=== PATIENT | female | born 1960 | race American Indian/Alaskan Native ===

== ENCOUNTER → 2018-01-26 | Outpatient (CLI) | payer OTHER ==
[~2018-01-26] MED LIST: (None)20 M1 PO; CEPH500 PO; CIPR500 PO; Cleocin HCl150 MG PO; Doxycycline Hy100 MG PO; Esgic Tablet1 EACH PO; FERR325 PO; FURO20 PO; FURO40 PO; HYDR1TAB94 PO; LEVSOD88 PO; LISI5 PO; NADO40 PO; Norco 10-325 T1 EACH PO; ONDA4; ONDA4ODT MM; PANT40 PO; PROM25 PO; PROP10 PO; PSEU120ER PO; RXHYD5325 PO; RXONDA4ODT MM; Roxicodone5 MG PO; SPIR50 PO; SULTRIDS; THYROID; URSO300; URSO300 PO; Veetids 500500 MG PO; Zofran Odt4 MG SL; Zofran Odt8 MG SL; [UNRECOGNIZED DRUG - OTHER]
== END ==
LOC: LAB SHORT 15:30 → LAB 15:30
DX: R31.9 Hematuria, unspecified (principal)
CPT/HCPCS: 87086

== ENCOUNTER 2018-10-13 08:29 | Day surgery (SDC) | payer OTHER ==
[~2018-10-13] VITALS: Ht 175.3 cm; Wt 119.8 kg
[2018-10-13] MEDS ORDERED: ALPR.5 PO (09:55)
[2018-10-13] MEDS ORDERED: ALBU90OI61 INH (09:56)
--- NOTE | 2018-10-13 11:51 | NUR ---
10/13/18 Luis M Parham PATIENT INTO SDU RESTING IN BED, REPORTS NAUSEA, PER MD ORDERS GAVE IV MEDICATION FOR NAUSEA, WILL CONTINUE TO MONITOR. PATIENT VSS. SANDRA CALLED AND ARRIVED @1137 FOR CXR.
== END 2018-10-13 13:15 | disposition home or self-care (01) ==
LOC: ORSCSDS 08:29
DX: C81.0 Nodular lymphocyte predominant Hodgkin lymphoma (principal); C81.01 Nodular lymphocyte predominant Hodgkin lymphoma, lymph nodes of head, face, and neck; I10 Essential (primary) hypertension; E03.9 Hypothyroidism, unspecified; E66.01 Morbid (severe) obesity due to excess calories; Z68.39 Body mass index [BMI] 39.0-39.9, adult; Z79.899 Other long term (current) drug therapy
CPT/HCPCS: 77001; C1788; J0690; J1100; J1642; J2250; J2405; J3010; J7120

== ENCOUNTER 2019-01-17 00:34 | Day surgery (SDC) | payer OTHER ==
[2019-01-16 08:10] LABS: BASOPHILS ABSOLUTE AUTO 0.01 K/mm3 (0.00-0.23); BASOPHILS PERCENT AUTO 0 % (0-2); EOSINOPHILS PERCENT AUTO 0 % (0-6); Hematocrit 26.8 % (33.0-51.0); IMMATURE GRAN ABSOLUTE AUTO 0.23 K/mm3 (0.00-0.10); IMMATURE GRAN PERCENT AUTO 5 % (0-1); LYMPHOCYTES ABSOLUTE AUTO 0.14 K/mm3 (0.84-5.20); LYMPHOCYTES PERCENT AUTO 3 % (21-46); MONOCYTES ABSOLUTE AUTO 0.69 K/mm3 (0.16-1.47); MONOCYTES PERCENT AUTO 14 % (4-13); Mean Corpuscular HGB Conc 33.6 g/dL (31.5-36.5); Mean Corpuscular Volume 98 fL (80-100); Mean Platelet Volume 11.2 fL (9.1-12.4); NEUTROPHILS ABSOLUTE AUTO 3.83 K/mm3 (1.96-9.15); NEUTROPHILS PERCENT AUTO 78 % (41-73); NRBC ABSOLUTE 0.03 K/mm3 (0.00-0.02); NRBC Auto 0.6 /100 WBC (0.0-0.2); Platelet Count 155 K/mm3 (150-400); RDW Coefficient Variation 15.9 % (11.7-14.2); RDW Standard Deviation 56.8 fL (35.1-46.3); Red Blood Cell Count 2.73 M/mm3 (3.80-5.20)
[2019-01-16 08:33] LABS: Alanine Aminotransfer (ALT/SGP 24 U/L (12-78); Albumin, Blood 2.6 g/dL (3.4-5.0); Albumin/Globulin Ratio 0.8 (0.8-1.8); Alk Phos 136 U/L (50-136); Anion Gap 11 mmol/L (6-16); Aspartate Aminotrans (AST/SGOT 42 U/L (12-37); Bilirubin, Total 1.7 mg/dL (0.1-1.0); Blood Urea Nitrogen 11 mg/dL (8-24); Bun/Creatinine Ratio 14.4 (12.0-20.0); CO2, Blood 25 mmol/L (21-32); Calcium, Blood 8.9 mg/dL (8.5-10.1); Chloride, Blood 96 mmol/L (98-108); Creatinine, Blood 0.76 mg/dL (0.40-1.00); Globulin, Blood 3.2 g/dL (2.2-4.0); Glomerular Filtration Rate >60 (60-); Glucose, Blood 106 mg/dL (70-99); Lactate Dehydrogenase (Ld),Bld 427 U/L (100-240); Potassium, Blood 3.3 mmol/L (3.5-5.5); Sodium, Blood 132 mmol/L (136-145); Total Protein, Blood 5.8 g/dL (6.4-8.2)
[~2019-01-17 00:34] MED LIST changes: +ALBU90OI61 INH; +ALPR.5 PO
[2019-01-17] MEDS ORDERED: PROP10 PO (14:27)
[2019-01-17] MEDS ORDERED: PSEU120ER PO (14:27)
[2019-01-17] MEDS ORDERED: Loratadine10 MG PO (14:29)
[2019-01-17] MEDS ORDERED: KRISTALOSE PO (14:29)
[2019-01-17] MEDS ORDERED: PANT40 PO (14:30)
[2019-01-17] MEDS ORDERED: ONDA8 PO (14:30)
[2019-01-17] MEDS ORDERED: PRED20 PO (14:33)
[2019-01-17] MEDS ORDERED: OLAN10 PO (14:33)
[2019-01-17] MEDS ORDERED: DEXA4 PO (14:34)
[2019-01-17] MEDS ORDERED: METO10 PO (14:35)
[2019-01-17] MEDS ORDERED: LIDOCAINE-PRIL1 EACH TOP (14:38)
[2019-01-17] MEDS ORDERED: NYST237S PO (14:39)
[2019-01-17] MEDS ORDERED: SUCR1 PO (14:42)
== END 2019-01-17 15:50 | disposition home or self-care (01) ==
LOC: ATC 00:34 → EDSTATUS 14:00 → ATC 14:00
PROVIDERS: Internal Medicine Hematology & Oncology
DX: C81.0 Nodular lymphocyte predominant Hodgkin lymphoma (principal); C81.01 Nodular lymphocyte predominant Hodgkin lymphoma, lymph nodes of head, face, and neck; E86.0 Dehydration; K21.9 Gastro-esophageal reflux disease without esophagitis; I10 Essential (primary) hypertension; D64.9 Anemia, unspecified; F41.9 Anxiety disorder, unspecified; Z87.442 Personal history of urinary calculi; Z79.899 Other long term (current) drug therapy
CPT/HCPCS: 36415; 36430; 80053; 83615; 85025; 86850; 86900; 86901; 86923; J1642; J7050; P9016

== ENCOUNTER 2019-02-06 18:40 | Inpatient (IN) | payer OTHER ==
[~2019-02-06] VITALS: Ht 167.6 cm; Wt 121.3 kg
[~2019-02-06 18:40] MED LIST changes: +Aldactone100 MG PO; +Constulose10 GM/15 M PO; +DEXA4 PO; +EUTHYROX88 MCG PO; -LEVSOD88 PO; +LIDOCAINE-PRIL1 EACH TOP; +Loratadine10 MG PO; +METO10 PO; +NYST237S PO; +OLAN10 PO; +PRED20 PO; -SPIR50 PO; +SUCR1 PO; -URSO300; +Zofran8 MG PO
[2019-02-06 19:40] LABS: Source, Urine Catheter
[2019-02-06 19:45] LABS: Blood, Urine 2+ (Neg); Glucose Qualitative, Urine Neg (Neg); Ketones, Urine Neg (Neg); Leukocyte Esterase, Urine 1+ (Neg); Nitrite, Urine Neg (Neg); Protein, Urine 1+ (Neg); Specific Gravity, Urine 1.015 (1.003-1.022); Urobilinogen, Urine 1+ (Normal)
[2019-02-06 19:46] LABS: Hematocrit 21.7 % (33.0-51.0); Mean Corpuscular HGB Conc 32.3 g/dL (31.5-36.5); Mean Corpuscular Volume 99 fL (80-100); RDW Coefficient Variation 17.2 % (11.7-14.2); RDW Standard Deviation 63.1 fL (35.1-46.3); Red Blood Cell Count 2.19 M/mm3 (3.80-5.20)
[2019-02-06 19:52] LABS: Platelet Count 9 K/mm3 (150-400)
[2019-02-06 19:53] LABS: White Blood Cell Count 0.03 K/mm3 (4.00-11.30)
[2019-02-06 19:58] LABS: Bilirubin, Urine 1+ (Neg)
[2019-02-06 19:59] LABS: Appearance, Urine Hazy (Clear); Color, Urine Orange (P-Yellow)
[2019-02-06 20:00] LABS: Bacteria Many /hpf; Red Blood Cells, Urine 0-2 /hpf (0-2); Squamous Epithelial Cells Not Seen /hpf (Few); White Blood Cells, Urine 0-2 /hpf (0-5)
[2019-02-06 20:17] LABS: Albumin, Blood 2.3 g/dL (3.4-5.0); Albumin/Globulin Ratio 1.1 (0.8-1.8); Bilirubin, Total 3.9 mg/dL (0.1-1.0); Bun/Creatinine Ratio 18.1 (12.0-20.0); Calcium, Blood 8.9 mg/dL (8.5-10.1); Creatinine, Blood 1.16 mg/dL (0.40-1.00); Globulin, Blood 2.1 g/dL (2.2-4.0); Total Protein, Blood 4.4 g/dL (6.4-8.2)
[2019-02-06 20:20] LABS: International Normalized Ratio 1.57
[2019-02-06 22:10] LABS: RETIC HGB EQUIVALENT 37.1 pg (28.20-36.60); RETICULOCYTE COUNT PERCENT 0.26 % (0.50-2.50)
[2019-02-07 03:14] LABS: Adenovirus Not Detected (NOT DETECT); Bordetella pertussis Not Detected (NOT DETECT); Chlamydophila pneumoniae Not Detected (NOT DETECT); Coronavirus 229E Not Detected (NOT DETECT); Coronavirus HKU1 Not Detected (NOT DETECT); Coronavirus NL63 Not Detected (NOT DETECT); Coronavirus OC43 Not Detected (NOT DETECT); Human Metapneumovirus Not Detected (NOT DETECT); Human Rhinovirus/Enterovirus Not Detected (NOT DETECT); Influenza A Not Detected (NOT DETECT); Influenza A/2009-H1 Not Detected (NOT DETECT); Influenza A/H1 Not Detected (NOT DETECT); Influenza A/H3 Not Detected (NOT DETECT); Influenza B Not Detected (NOT DETECT); Mycoplasma pneumoniae Not Detected (NOT DETECT); Parainfluenza Virus 1 Not Detected (NOT DETECT); Parainfluenza Virus 2 Not Detected (NOT DETECT); Parainfluenza Virus 3 Not Detected (NOT DETECT); Parainfluenza Virus 4 Not Detected (NOT DETECT); Respiratory Syncytial Virus Not Detected (NOT DETECT)
[2019-02-07 05:01] LABS: Hematocrit 20.1 % (33.0-51.0); Hemoglobin 6.7 g/dL (11.5-16.0); Mean Corpuscular HGB 32.4 pg (26.0-34.0); Mean Corpuscular HGB Conc 33.3 g/dL (31.5-36.5); Mean Corpuscular Volume 97 fL (80-100); Mean Platelet Volume 10.9 fL (9.1-12.4); RDW Coefficient Variation 16.6 % (11.7-14.2); Red Blood Cell Count 2.07 M/mm3 (3.80-5.20)
[2019-02-07 05:08] LABS: Platelet Count 19 K/mm3 (150-400); White Blood Cell Count 0.02 K/mm3 (4.00-11.30)
[2019-02-07 05:14] LABS: Bun/Creatinine Ratio 17.3 (12.0-20.0); Calcium, Blood 7.1 mg/dL (8.5-10.1); Creatinine, Blood 1.33 mg/dL (0.40-1.00); Potassium, Blood 4.5 mmol/L (3.5-5.5)
[2019-02-07 05:18] LABS: LYMPHOCYTES PERCENT AUTO 40 % (21-46); NEUTROPHILS PERCENT AUTO 40 % (41-73)
[2019-02-07 05:19] LABS: BASOPHILS PERCENT AUTO 0 % (0-2); EOSINOPHILS PERCENT AUTO 0 % (0-6); IMMATURE GRAN PERCENT AUTO 0 % (0-1); LYMPHOCYTES ABSOLUTE AUTO 0.02 K/mm3 (0.84-5.20); MONOCYTES ABSOLUTE AUTO 0.01 K/mm3 (0.16-1.47); MONOCYTES PERCENT AUTO 20 % (4-13); NEUTROPHILS ABSOLUTE AUTO 0.02 K/mm3 (1.96-9.15)
--- NOTE | 2019-02-07 05:48 | NUR ---
ADMIT/SHIFT NOTE PT ARRIVED TO ICU 2 AT 2215 VIA ER BED. PT IS DROWSEY AND ONLY SPEAKS SOME WORDS UPON ARRIVAL. PT FOLLOWS SOME COMMANDS, BUT IS FIDGETY IN BED. PT WITH FIRST UNIT OF PRBC'S AND NS INFUSING IN IVS TO BILAT LOWER LEGS UPON ARRIVAL. PT NOTED TO BE HYPOTENSIVE AT THIS TIME. DR MUNOZ IN UNIT AND ASSESSED PT. NEW ORDERS RECIEVED. MEDIPORT TO RIGHT UPPER CHEST ACCESSED AT THAT TIME. DAVIS IN PLACE UPON ARRIVAL. LEVOPHED STARTED AND MORE FLUIDS GIVEN. PT HAS REMAINED WITH LEVOPHED AT 5 MCG/MIN TO MAINTAIN MAP >65. SECOND UNIT OF PRBCS AND ONE UNIT OF PLATELETS GIVEN. PT HAS REMAINED ON ROOM AIR THROUGHOUT THE SHIFT. WITH WITH SOME IMPROVEMENT IN MENTATION AND EASIER TO AROUSE THIS MORNING. ABLE TO SPEAK MORE WORDS APPROPRIATELY AND IS LESS FIDGETY. MEDIPORT REMAINS ACCESSED WITH NS AT 200 ML/HR AND LEVOPHED INFUSING. IVS TO BILAT LEGS REMAIN IN PLACE. DAVIS REMAINS IN PLACE WITH MINIMAL URINE OUTPUT NOTED. FAMILY AT BEDSIDE AT THIS TIME. WILL CONTINUE TO MONITOR AND REPORT OFF TO ONCOMING RN.
--- NOTE | 2019-02-07 07:45 | NUR ---
ASSUMED CARE PT. PALE IN COLOR. ORIENTED TO LOCATION AND FAMILY. PT. TACHYPNEIC, BREATHING SHALLOW, AND GRUNTING WITH BREATHING. SPO2 95%, PLACED ON 2LNC AT THIS TIME AND BREATHING TREATMENT PROVIDED PER PT. REQUEST. PT. HR 130S, LEVOPHED GTT AT 5MCG/MIN TO MEDIPORT. PT. ALSO HAS 200ML/HR NS INFUSING. PT. HAS IVS IN BILAT LE. PT. FIDGETING IN BED, DENIES PAIN AT THIS TIME. DAVIS IN PLACE DRAINING ORANGE URINE TO GRAVITY. TEMP 99.2 THIS AM. CALL LIGHT IN REACH.
--- NOTE | 2019-02-07 09:48 | NUR ---
DR. ROWELL IN TO ASSESS PT.
[2019-02-07 10:18] LABS: Base Excess Venous -12.3 mmol/L; Bicarbonate Venous 15.5 mmol/L (24.0-30.0); PO2 Venous 136 mmHg (38-42); pH Blood Venous 7.35 (7.34-7.37)
--- NOTE | 2019-02-07 13:00 | NUR ---
DR. RIVERA AT BEDSIDE TO TALK WITH PT AND FAMILY NO ADDITIONAL ORDERS AT THIS TIME.
[2019-02-07 16:28] LABS: Hematocrit 21.2 % (33.0-51.0); Mean Corpuscular HGB 31.4 pg (26.0-34.0); Mean Corpuscular Volume 95 fL (80-100); RDW Coefficient Variation 17.6 % (11.7-14.2); RDW Standard Deviation 60.9 fL (35.1-46.3); Red Blood Cell Count 2.23 M/mm3 (3.80-5.20)
[2019-02-07 16:49] LABS: BASOPHILS PERCENT AUTO 0 % (0-2); EOSINOPHILS PERCENT AUTO 0 % (0-6); IMMATURE GRAN PERCENT AUTO 0 % (0-1); LYMPHOCYTES ABSOLUTE AUTO 0.01 K/mm3 (0.84-5.20); LYMPHOCYTES PERCENT AUTO 33 % (21-46); MONOCYTES ABSOLUTE AUTO 0.01 K/mm3 (0.16-1.47); MONOCYTES PERCENT AUTO 33 % (4-13); NEUTROPHILS ABSOLUTE AUTO 0.01 K/mm3 (1.96-9.15); NEUTROPHILS PERCENT AUTO 33 % (41-73)
[2019-02-07 16:50] LABS: White Blood Cell Count 0.03 K/mm3 (4.00-11.30)
[2019-02-07 16:51] LABS: Platelet Count 13 K/mm3 (150-400)
--- NOTE | 2019-02-07 17:11 | NUR ---
CALL TO DR. ROWELL REGARDING 1600 LABS NO CHANGES AT THIS TIME, CONTINUE WITH LEVOPHED NEEDED FOR BP
--- NOTE | 2019-02-07 18:02 | NUR ---
SHIFT SUMMARY PT. REMAINS ALERT T/O SHIFT, SOME CONFUSION NOTED AT TIMES. PT. VERY WEAK. PALE IN COLOR. PT. REMAINS ON LEVOPHED GTT T/O SHIFT CURRETNLY AT 6MCG/MIN. PT. MED ONCE FOR PAIN AND ANXIETY THIS SHIFT. PT. AT BEDSIDE T/O DAY. VSS AT THIS TIME. REPORT TO ONCOMING RN.
--- NOTE | 2019-02-07 19:50 | NUR ---
ASSESSMENT/ASSUMED CARE PT SITTING UP IN BED WATCHING TV. SMOCKING MACHINE OPERATOR AT BEDSIDE. PT DENIES PAIN AT THIS TIME. ANSWERING YES/NO QUESTIONS. LUNGS CLEAR BUT DECREASED IN THE BASES ON 2 LITERS O2 VIA NC. RESP EVEN AND NONLABORED. TACHY AT TIMES. DENIES COUGH OR SOB. HEART RATE TACHY 100-110. BP STABLE WITH LEVOPHED AT 6 MCQ/MIN TO KEEP MAP ABOVE 65. EDEMA NOTED TO LOWER EXT. BT+ ABD SOFT AND NONTENDER. DENIES N/V. MEDIPORT TO RIGHT CHEST WALL WITH NS AT 10 ML/HR AND LEVOPHED. SITE CLEAR. IV POWER GLIDE TO LEFT UPPER ARM WITH NS AT 10 ML/HR FOR ANTIBIOTICS, SITE CLEAR. DAVIS CATH PATENT DRAINING DARK ORANGE URINE WITH SEDIMENT. PT REPOSITIONED AND ORAL CARE DONE.
[2019-02-07 22:43] LABS: Vancomycin, Trough 22.3 ug/mL (5.0-10.0)
--- NOTE | 2019-02-07 23:48 | NUR ---
REASSESSMENT PT AWAKE WITH VIDEO EDITING INTERNSHIP SLEEPING IN ROOM. PT REPOSITIONED TO BACK WITH HOB UP. PT REQUESTED "SOMETHING TO HELP ME RELAX" MED WITH ATIVAN 0.5 MG. LEVOPHED DOWN TO 3 MCQ/MIN. SOLU CORTEF GIVEN AND ANTIBIOTIC STARTED. VANCO HELD DUE TO TROUGH OF 22.3 PER PHARMACY.
[2019-02-08 03:56] LABS: Bicarbonate Venous 18.8 mmol/L (24.0-30.0); PCO2 Venous 26.4 mmHg (38-42); PO2 Venous 51.2 mmHg (38-42); pH Blood Venous 7.42 (7.34-7.37)
[2019-02-08 03:57] LABS: Base Excess Venous -7.3 mmol/L
[2019-02-08 04:23] LABS: Hematocrit 19.7 % (33.0-51.0); Hemoglobin 6.7 g/dL (11.5-16.0); Mean Corpuscular HGB 32.4 pg (26.0-34.0); Mean Corpuscular Volume 95 fL (80-100); RDW Coefficient Variation 17.5 % (11.7-14.2); RDW Standard Deviation 61.1 fL (35.1-46.3); Red Blood Cell Count 2.07 M/mm3 (3.80-5.20)
[2019-02-08 04:24] LABS: BASOPHILS ABSOLUTE AUTO 0.01 K/mm3 (0.00-0.23); BASOPHILS PERCENT AUTO 11 % (0-2); EOSINOPHILS PERCENT AUTO 0 % (0-6); IMMATURE GRAN PERCENT AUTO 0 % (0-1); LYMPHOCYTES ABSOLUTE AUTO 0.02 K/mm3 (0.84-5.20); LYMPHOCYTES PERCENT AUTO 22 % (21-46); MONOCYTES ABSOLUTE AUTO 0.01 K/mm3 (0.16-1.47); MONOCYTES PERCENT AUTO 11 % (4-13); NEUTROPHILS ABSOLUTE AUTO 0.05 K/mm3 (1.96-9.15); NEUTROPHILS PERCENT AUTO 56 % (41-73)
[2019-02-08 04:25] LABS: Platelet Count 6 K/mm3 (150-400); Vancomycin, Random 18.1 ug/mL; White Blood Cell Count 0.09 K/mm3 (4.00-11.30)
[2019-02-08 04:35] LABS: Albumin, Blood 2.5 g/dL (3.4-5.0); Albumin/Globulin Ratio 1.1 (0.8-1.8); Bilirubin, Total 6.1 mg/dL (0.1-1.0); Bun/Creatinine Ratio 28.8 (12.0-20.0); Creatinine, Blood 1.04 mg/dL (0.40-1.00); Globulin, Blood 2.2 g/dL (2.2-4.0); Magnesium, Blood 1.3 mg/dL (1.6-2.4); Phosphorus, Blood 3.3 mg/dL (2.5-4.9); Potassium, Blood 4.9 mmol/L (3.5-5.5); Total Protein, Blood 4.7 g/dL (6.4-8.2)
[2019-02-08 04:38] LABS: Troponin I 0.563 ng/mL (0.000-0.040)
--- NOTE | 2019-02-08 04:49 | NUR ---
LABS DR ROWELL NOTIFIED REGARDING CRITICAL LABS. RECEIVED ORDERS FOR 1 GRAM MAG AND ONE UNIT PLT.
--- NOTE | 2019-02-08 05:49 | NUR ---
SHIFT SUMMARY PT RESTED QUIELTY DURING THE NIGHT. PT MED WITH ATIVAN ONCE FOR ANXIETY. DENIES PAIN. LEVOPHED TITRATED FROM 6 MCQ/MIN DOWN TO 1 MCQ/MIN DURING THE NIGHT, TITRATING TO KEEP MAP ABOVE 65. PT TRANSFUSED ONE UNIT PLT DUE TO PLT DOWN TO 6. LABS REPORTED TO DR ROWELL. 1 GM MAG INFUSING. PT TURNED Q2HR. MEDIPORT AND POWER GLIDE INFUSING WITHOUT DIFFICULTY. CHEMICAL LABORATORY TECHNICIAN AT BEDSIDE. NO ACUTE CHANGE REPORT TO ON COMING NURSE
--- NOTE | 2019-02-08 07:27 | NUR ---
ASSUMED CARE THIS AM PT. AWAKENS EASILY TO VERBAL STIMULI. PT. REMAINS ON LEOVPHED GTT AT THIS TIME AT 1MCG/MIN. PT. DENIES ANY PAIN THIS MORNING INCLUDING CHEST PAIN OR PRESSURE. PT. AFEBRILE THIS AM. PT. ABLE TO ASSIST WITH REPOSITIONING IN BED, HOWEVER VERY WEAK. REMAINS ON 2LNC. PT. RR EVEN AND UNLABORED THIS AM. SHALLOW BREATHES. PT. HAS CALL LIGHT IN REACH. DAVIS IN PLACE DRAINING TO GRAVITY. PT. SLEEPING AT BEDSIDE. VSS THIS AM.
--- NOTE | 2019-02-08 11:17 | NUR ---
UPDATE PT. RESTING COMFORTABLY IN BED, NO ACUTE DISTRESS AT THIS TIME. NO C/O PAIN.PT. FAMILY REMINDED FREQUENTLY TO FOLLOW NEUTROPENIC PRECAUTIONS; PT SIGNIFICANT OTHER REFUSES, STATING HE CANNOT BREATHE WITH A MASK ON. EDUCATED ON REASONS FOR PRECAUTIONS AND SAFETY OF PATIENT. MULTIPLE FAMILY MEMBERS UPDATED TODAY, ENCOURAGED THEY APPOINT AN INDIVIDUAL TO RECIEVE UPDATES AND KEEP FAMILY UPDATED SO RN CAN FOCUS ON PROVIDING CARE TO PATIENT.
--- NOTE | 2019-02-08 11:53 | NUR ---
LUNCH PT. ABLE TO TOLERATE VERY SMALL AMOUNT OF LUNCH. TRAY CHANGED TO PUREE R/T PT NOT HAVING TEETH. PT. ENCOURAGED TO HOLD HER WATER CUP AND FEED SELF. ABLE TO DO SO WITH MINIMAL ASSIST, VERY WEAK. PT. CONTINUES TO REFUSE BATH AT THIS TIME. REFUSED TO REPOSITION TO SIDE. O2 REMOVED AT THIS TIME, SPO2 96% ON RA WILL USE PRN. PT. VSS AT THIS TIME, LEVOPHED GTT PLACED ON STAND BY AT THIS TIME. WILL CONTINUE TO MONITOR PRESSURES AND RESTART IF NEEDED.
[2019-02-08 12:08] LABS: Hematocrit 19.7 % (33.0-51.0); Hemoglobin 6.6 g/dL (11.5-16.0); Mean Corpuscular HGB 31.7 pg (26.0-34.0); Mean Corpuscular HGB Conc 33.5 g/dL (31.5-36.5); Mean Corpuscular Volume 95 fL (80-100); RDW Coefficient Variation 17.4 % (11.7-14.2); RDW Standard Deviation 60.9 fL (35.1-46.3); Red Blood Cell Count 2.08 M/mm3 (3.80-5.20)
[2019-02-08 12:16] LABS: BASOPHILS PERCENT AUTO 0 % (0-2); EOSINOPHILS PERCENT AUTO 0 % (0-6); IMMATURE GRAN ABSOLUTE AUTO 0.01 K/mm3 (0.00-0.10); IMMATURE GRAN PERCENT AUTO 14 % (0-1); LYMPHOCYTES ABSOLUTE AUTO 0.01 K/mm3 (0.84-5.20); LYMPHOCYTES PERCENT AUTO 14 % (21-46); MONOCYTES ABSOLUTE AUTO 0.01 K/mm3 (0.16-1.47); MONOCYTES PERCENT AUTO 14 % (4-13); NEUTROPHILS ABSOLUTE AUTO 0.04 K/mm3 (1.96-9.15); NEUTROPHILS PERCENT AUTO 57 % (41-73)
[2019-02-08 12:17] LABS: Platelet Count 16 K/mm3 (150-400); White Blood Cell Count 0.07 K/mm3 (4.00-11.30)
[2019-02-08 12:25] LABS: Magnesium, Blood 1.8 mg/dL (1.6-2.4); Troponin I 0.36 ng/mL (0.000-0.040)
--- NOTE | 2019-02-08 18:02 | NUR ---
SHIFT SUMMARY PT. MORE ALERT T/O DAY. VERY WEAK. REFUSING REPOSITIONING AND BED BATH TODAY. DISCUSSED WITH PT THE IMPORTANCE OF MOVEMENT AND PT AGREED TOMORROW TO ALLOW BATH AND ASSISTANCE TO CHAIR. PT. VSS T/O SHIFT. LEVOPHED GTT TURNED OFF AT 1200. 1 UNIT PRBCS TRANSFUSED THIS SHIFT. PT. COLORING IMPROVED THIS SHIFT WELL, MORE PINK IN CHEEKS. PT. ABLE TO EAT SMALL AMOUNTS OF LUNCH AND DINNER WITH ASSISTANCE. VSS AT THIS TIME. REPORT TO ONCOMING RN.
--- NOTE | 2019-02-08 18:44 | NUR ---
[facility] initial visit: Aliza appears lucid, but very weak/frail. She speaks softly and is sometimes difficult to understand. She admits she is fearful that she is dying and does not know if the chemo has worked. She is hoping she is now cancer-free. Physicians are waiting for Aliza to get stronger to run scans. Pt and family very anxious. Family hyper-vigilent. Ex-spouse is gaurded and suspicious. Son, Rubens, appears loving/devoted. All three seem to be having difficulty understanding medical jargon/dx. All beleive Aliza is now in remission. Gilbert was under the impression he had MPOA. He brought in Durable Power of Coding Clerks Supervisor document. But this said nothing about medical decisions. He appears overwhelmed. I provided affirmation of love and complimented him on his care for pt. Assured Aliza and family of continued care and guidence. Medical [facility] Radiographer Services will remain available.
--- NOTE | 2019-02-08 23:50 | NUR ---
START OF SHIFT: REPORT FROM ELEANOR BERNARD. PT'S FAMILY IN ROOM WHO LEFT THE ROOM SHORTLY AFTER 1900. PT SLEEPING AT THAT TIME. PT AWAKENED SLIGHTLY DURING INITIAL ASSESSMENT BUT WOULDN'T OPEN EYES. PT REACHED UP AND RUBBED EYELIDS BUT SHOOK HER HEAD TO OPENING EYES. VSS. BP STABLE. PT REPOSITIONED BY REMOVING PILLOWS FROM BACK. PT LATER ONLY WANTED LEGS REPOSITIONED AND REFUSED ANY OTHER REPOSITIONING AFTER. PT'S FAMILY AT BEDSIDE DURING SECOND REPOSIOING AND STATED, "SHE DOESN'T WANT TO BE TURNED". PT STATED, "LATER". FAMILY QUESTIONS ANSWERED. PT'S X-/CAREGIVER REMAINING IN ROOM FOR THE NIGHT AND WAS REMINDED TO USE ALCOHOL FOAM PRIOR TO ENTERING ROOM AND TO WEAR MASK WHILE IN ROOM.
[2019-02-09 05:34] LABS: Hematocrit 22.7 % (33.0-51.0); Hemoglobin 7.7 g/dL (11.5-16.0); Mean Corpuscular HGB 32.5 pg (26.0-34.0); Mean Corpuscular HGB Conc 33.9 g/dL (31.5-36.5); Mean Corpuscular Volume 96 fL (80-100); RDW Coefficient Variation 16.9 % (11.7-14.2); RDW Standard Deviation 58.7 fL (35.1-46.3); Red Blood Cell Count 2.37 M/mm3 (3.80-5.20)
[2019-02-09 05:42] LABS: White Blood Cell Count 0.12 K/mm3 (4.00-11.30)
[2019-02-09 05:44] LABS: BASOPHILS PERCENT AUTO 0 % (0-2); EOSINOPHILS PERCENT AUTO 0 % (0-6); IMMATURE GRAN PERCENT AUTO 0 % (0-1); LYMPHOCYTES PERCENT AUTO 0 % (21-46); MONOCYTES ABSOLUTE AUTO 0.01 K/mm3 (0.16-1.47); MONOCYTES PERCENT AUTO 8 % (4-13); NEUTROPHILS ABSOLUTE AUTO 0.11 K/mm3 (1.96-9.15); NEUTROPHILS PERCENT AUTO 92 % (41-73); Platelet Count 6 K/mm3 (150-400)
[2019-02-09 05:48] LABS: Albumin, Blood 2.2 g/dL (3.4-5.0); Anion Gap 8 mmol/L (6-16); Blood Urea Nitrogen 42 mg/dL (8-24); CO2, Blood 21 mmol/L (21-32); Calcium, Blood 7.8 mg/dL (8.5-10.1); Chloride, Blood 109 mmol/L (98-108); Glomerular Filtration Rate >60 (60-); Glucose, Blood 100 mg/dL (70-99); Phosphorus, Blood 3.5 mg/dL (2.5-4.9); Potassium, Blood 4.4 mmol/L (3.5-5.5); Sodium, Blood 138 mmol/L (136-145); Vancomycin, Trough 19.7 ug/mL (5.0-10.0)
--- NOTE | 2019-02-09 07:17 | NUR ---
ASSUMED CARE REPORT FROM PARDEEP Pablo RN. DR. ROWELL CALLED DURING REPORT. ORDERS REC'D AND IMPLEMENTED
--- NOTE | 2019-02-09 08:38 | NUR ---
PATIENT C/O EYES BEING SORE AND DRY. ALSO C/O SORE FROM BRUISE RIGHT LOWER LEG AND TENDERNESS RUQ.
--- NOTE | 2019-02-09 09:55 | NUR ---
MD VISITS DR. LAN IN EARLIER. WILL ORDER EYE DROPS. DR. BETH AT BEDSIDE NOW. DAUGHTER IN LAW IN
--- NOTE | 2019-02-09 11:05 | NUR ---
UPDATED FAMILY ON BENEFITS OF HOSPICE AND ASKED ABOUT CODE STATUS. SON SAID HE THOUGHT PATIENT HAD FILLED OUT AN ADVANCED DIRECTIVE OR POLST. EX- SAID SHE WANTED TO BE A FULL CODE. WHEN TOLD THE PATIENT WOULD MAKE THE DECISION WELL HER LISTED NEXT OF KIN (HER SON, DIANNE JACKSON), MR. HERNANDEZ SAID HE IS STILL HER EVEN THOUGH THEY GOT A DIVORCE BECAUSE OF THE STATE. WE WILL CONTINUE TO LOOK FOR ADVANCE DIRECTIVE AND POLST INFORMATION, BUT AT THIS TIME THE PATIENT IS ABLE TO MAKE DECISIONS FOR HERSELF. VITAL SIGNS CONTINUE TO BE STABLE. WILL REMOVE DAVIS CATHETER AND GIVE PATIENT HER BATH. PT/OT HAS BEEN ORDERED TO WORK WITH HER
--- NOTE | 2019-02-09 14:54 | NUR ---
PHYSICAL THERAPY IN
--- NOTE | 2019-02-09 19:30 | NUR ---
ASSUMED CARE RECEIVED REPORT FROM MARCO ANTONIO JONES. PT IN BED ASLEEP, VITALS STABLE, RESTING SUPINE. BED LOW AND LOCKED, CALL LIGHT WITHIN REACH. ATTENDS IS DRY.
--- NOTE | 2019-02-09 22:51 | NUR ---
UPDATE TALKED TO EX- - HE CONTINUES TO INFORM ME OF WHY THEY ARE LEGALLY BUT NOT ACTUALLY ; BECAUSE OF THE STATE, AND IT HAD SOMETHING TO DO WITH THE PAYMENT OF TREATEMENTS FOR HER CANCER(?), BECAUSE HE MAKES TOO MUCH(?). I AM NOT FULLY COMPREHENDING HIM AND THIS SITUATION. HE IS ADAMENT ABOUT FULL CODE STATUS, AND VERY HOPEFULL FOR A FULL RECOVERY - DOES NOT WANT TO HEAR ABOUT THE POTENTIAL FOR HOSPICE CARE. PT IS CLEARLY IN PAIN AND ANXIOUS WHEN AWAKE, BUT STATES SHE "... DOESN'T WANT TO BE A BURDON". ATIVAN/FENTANYL HAVE BEEN GIVEN. PHYLICIA (SON, LEGAL NEXT OF KIN) IS CURRENTLY BEDSIDE AND SEEMS TO THINK MORE REALISTICALLY, AND ENTERTAINS THE IDEA OF HOPSICE CARE. PT IS ASLEEP AND COMFORTABLE AT THIS MOMENT, VS STABLE, SON IN CHAIR AT BEDSIDE. BED LOW AND LOCKED, CALL LIGHT WITHIN REACH OF PT.
--- NOTE | 2019-02-09 23:57 | NUR ---
TALKED WITH DR. RIVERA (ONCOLOGIST) HE DISCUSSED WITH ME THAT WHAT THIS PT IS GOING THROUGH IS CURABLE, AND THAT HOSPICE CARE SHOULDN'T BE A CONCERN AT THIS TIME. HE REVIEWED CHART AND LABS AND HAS ORDERED 2 UNITS PRBC'S AT THIS TIME.
--- NOTE | 2019-02-10 06:31 | NUR ---
SHIFT SUMMARY PT ALERT AND ORIENTED TO SELF, PLACE, SURROUNDINGS, AND SITUATION. IS ABLE TO EXPRESS HER NEEDS FOR THE MOST PART; SHE HAS BEEN QUITE THIRSTY, A LITTLE ANXIOUS AT THE BEGINNING, AND JUST NOW ASKED FOR SOME PAIN MEDS. I GAVE ATIVAN/FENTANYL AT START OF SHIFT, AND JUST GAVE ANOTHER DOSE OF FENTANYL. NICOLE SAW PT (SEE PREVIOUS NOTE), 2/2 UNIT OF PRBC FINISHING UP NOW. NO S/S OF TRANSFUSION REACTIONS; STABLE VITALS, CLEAR LUNG SOUNDS, AND NO ACUTE CHANGES IN PT PRESENTATION. MORNING LABS DELAYED A LITTLE BIT DUE TO ADMINISTRATION OF BLOOD. SON AT BEDSIDE ALL NIGHT. PT WAS ABLE TO REST THROUGHOUT NIGHT AND ONLY AWAKE DURING REPOSITIONINGS. BED LOW AND LOCKED, CALL LIGHT WITHIN REACH.
--- NOTE | 2019-02-10 07:22 | NUR ---
ASSUMED CARE REPORT FROM MARCO ANTONIO COX. SON AT BEDSIDE
[2019-02-10 08:31] LABS: Hematocrit 28.6 % (33.0-51.0); Hemoglobin 9.7 g/dL (11.5-16.0); Mean Corpuscular HGB 30.9 pg (26.0-34.0); Mean Corpuscular HGB Conc 33.9 g/dL (31.5-36.5); Mean Platelet Volume 11.1 fL (9.1-12.4); RDW Coefficient Variation 16.3 % (11.7-14.2); Red Blood Cell Count 3.14 M/mm3 (3.80-5.20)
[2019-02-10 08:35] LABS: Mean Corpuscular Volume 91 fL (80-100); White Blood Cell Count 0.31 K/mm3 (4.00-11.30)
[2019-02-10 08:37] LABS: BASOPHILS PERCENT AUTO 0 % (0-2); EOSINOPHILS PERCENT AUTO 0 % (0-6); IMMATURE GRAN ABSOLUTE AUTO 0.02 K/mm3 (0.00-0.10); IMMATURE GRAN PERCENT AUTO 7 % (0-1); LYMPHOCYTES ABSOLUTE AUTO 0.01 K/mm3 (0.84-5.20); LYMPHOCYTES PERCENT AUTO 3 % (21-46); MONOCYTES ABSOLUTE AUTO 0.04 K/mm3 (0.16-1.47); MONOCYTES PERCENT AUTO 13 % (4-13); NEUTROPHILS ABSOLUTE AUTO 0.24 K/mm3 (1.96-9.15); NEUTROPHILS PERCENT AUTO 77 % (41-73); Platelet Count 5 K/mm3 (150-400)
[2019-02-10 09:00] LABS: Alanine Aminotransfer (ALT/SGP 57 U/L (12-78); Albumin/Globulin Ratio 0.8 (0.8-1.8); Alk Phos 78 U/L (50-136); Anion Gap 8 mmol/L (6-16); Aspartate Aminotrans (AST/SGOT 75 U/L (12-37); Bilirubin, Total 7.2 mg/dL (0.1-1.0); Blood Urea Nitrogen 46 mg/dL (8-24); Bun/Creatinine Ratio 51.7 (12.0-20.0); CO2, Blood 21 mmol/L (21-32); Calcium, Blood 8.3 mg/dL (8.5-10.1); Chloride, Blood 108 mmol/L (98-108); Creatinine, Blood 0.89 mg/dL (0.40-1.00); Globulin, Blood 2.6 g/dL (2.2-4.0); Glomerular Filtration Rate >60 (60-); Glucose, Blood 93 mg/dL (70-99); Potassium, Blood 4.1 mmol/L (3.5-5.5); Sodium, Blood 137 mmol/L (136-145); Total Protein, Blood 4.6 g/dL (6.4-8.2)
--- NOTE | 2019-02-10 09:52 | NUR ---
MD VISIT DR. BETH IN. SON WAS UPDATED BY DR. BETH. CRITICAL PLT RESULT GIVEN TO DR. BETH
--- NOTE | 2019-02-10 11:13 | NUR ---
EX IS ASKING TO SEE MD BECAUSE HE HAS TRIED TO CONTACT DR. RIVERA TO ASK ABOUT "INTERNAL BLEEDING" BECAUSE PATIENT HAS HAD BLEEDING FROM [facility] IN THE PAST. PER EX , HE WAS TOLD BY THE ANSWERING SERVICE THAT THE RN OR ATTENDING WOULD HAVE TO CONTACT DR. RIVERA. DR. CORNELL WAS CALLED AND WILL BE IN TO SEE THE PATIENT AND FAMILY.
--- NOTE | 2019-02-10 11:19 | NUR ---
VENOUS DOPPLER OF RIGHT LEG ORDERED PRIOR TO PLACING PAS ON. TECH ADVISES THAT RIGHT LEG IS ALSO POSITIVE. PAS DC'D
--- NOTE | 2019-02-10 11:42 | NUR ---
MD VISIT DR. CORNELL IN.
--- NOTE | 2019-02-10 12:18 | NUR ---
DR. CORNELL ASKED TO SPEAK TO SON ALONE TO GIVE AN UPDATE
--- NOTE | 2019-02-10 17:24 | NUR ---
INCONTINENT OF LIQUID STOOL BEING CLEANED. RECTAL TUBE PLACED WITH ASSISTANCE FROM MARCO ANTONIO BHAKTA
--- NOTE | 2019-02-10 19:15 | NUR ---
ASSUMED CARE PT IN BED, DROWSY BUT WAKES TO VOICE, FOLLOWS COMMANDS AND IS SPEAKING WITH EX-. PT ATTENDS CHANGED AND REPOSITIONED. EX- IS ASKING ABOUT PAIN MEDICATIONS, UPDATE THAT PAIN MEDS DISCONTINUED BUT ATIVAN AVAILABLE AFTER 2029. NS TKO, RT UPPER CHEST WALL MEDIPORT ACCESSED, NS TKO. RECTAL TUBE PLACED TODAY D/T FREQUENT LIQUID STOOLS. PT'S MOUTH IS SORE AND HAS BEEN REFUSING SOME PO MEDS. BP STABLE, ECG SHOWS SR AND O2 SATS 94% RA. PT'S EX PLANS TO SPEND THE NIGHT.
--- NOTE | 2019-02-10 21:19 | NUR ---
SON CALLED-CONCERNS ABOUT PAIN CONTROL EX- IN ROOM. PREVIOUSLY MADE AWARE THAT FENTANYL WAS DISCONTINUED. HE WANTED TO KNOW WHEN THE DOCTOR MADE HIS ROUNDS TONIGHT, UPDATED THAT DR CORNELL WAS GONE FOR THE EVENING AND THE OVERNIGHT HOSPITALIST IS IN HOUSE BUT NOT FAMILIAR WITH PT'S COMPLEX MEDICAL ISSUES AND IS HERE FOR ISSUES/EMERGENCEIS THAT MAY OCCUR OVERNIGHT. EX CALLED PT'S SON DIANNE WHO THEN CALLED ICU AND SPOKE WITH CAMELIA BERNARD, REQUESTING TO SPEAK WITH DOCTOR REGARDING SAME CONCERNS (PT IS NOT BEING MEDICATED FOR PAIN). SON MADE AWARE THAT DR CORNELL NOT AVAILABLE. I CALLED SON BACK, UPDATED THAT I WILL CALL FOR ORDERS IF PT REPORTS PAIN BUT WITH EACH ASSESSMENT, PT CONTINUES TO DENY PAIN BUT DOES REPORT ANXIETY AND HAS BEEN MEDICATED X 1 SO FAR WITH IV ATIVAN. WHEN PT QUESTIONED ABOUT PAIN, PT DENIES AND EX STATES, "SHE IS LYING." ALSO, WITH HS MEDICATION, PT REFUSED PO LACTULOSE AND EX WAS UPSET PT REFUSED, BUT PT IS ALERT AND ABLE TO MAKE DECISIONS REGARDING CARE/NEEDS ON HER OWN. UPDATED EX- THAT I COULD NOT FORCIBLY MAKE PT TAKE MEDS AND PT REFUSAL IS HER RIGHT.
[2019-02-11 03:51] LABS: Hematocrit 28.9 % (33.0-51.0); Hemoglobin 9.8 g/dL (11.5-16.0); Mean Corpuscular HGB 31.4 pg (26.0-34.0); Mean Corpuscular HGB Conc 33.9 g/dL (31.5-36.5); Mean Corpuscular Volume 93 fL (80-100); RDW Coefficient Variation 17.2 % (11.7-14.2); RDW Standard Deviation 57.3 fL (35.1-46.3); Red Blood Cell Count 3.12 M/mm3 (3.80-5.20)
[2019-02-11 03:55] LABS: Platelet Count 24 K/mm3 (150-400); White Blood Cell Count 0.91 K/mm3 (4.00-11.30)
[2019-02-11 04:06] LABS: Anion Gap 8 mmol/L (6-16); Blood Urea Nitrogen 45 mg/dL (8-24); Bun/Creatinine Ratio 57.5 (12.0-20.0); CO2, Blood 23 mmol/L (21-32); Calcium, Blood 8.6 mg/dL (8.5-10.1); Chloride, Blood 108 mmol/L (98-108); Creatinine, Blood 0.78 mg/dL (0.40-1.00); Glomerular Filtration Rate >60 (60-); Glucose, Blood 84 mg/dL (70-99); Potassium, Blood 3.9 mmol/L (3.5-5.5); Sodium, Blood 139 mmol/L (136-145)
[2019-02-11 04:28] LABS: BAND PERCENT MAN 28 % (0-8); BASOPHILS PERCENT MAN 0 % (0-2); EOSINOPHILS PERCENT MAN 0 % (0-6); LYMPHOCYTES ABSOLUTE MAN 0.03 K/mm3 (0.84-5.20); LYMPHOCYTES PERCENT MAN 4 % (21-46); METAMYELOCYTE ABSOLUTE MAN 0.03 K/mm3 (0.00-0.00); METAMYELOCYTE PERCENT MAN 4 % (0-0); MONOCYTES PERCENT MAN 12 % (4-13); MYELOCYTE ABSOLUTE MAN 0.03 K/mm3 (0.00-0.00); MYELOCYTE PERCENT MAN 4 % (0-0); NEUTROPHILS ABSOLUTE MAN 0.69 K/mm3 (1.96-9.15); SEG NEUTROPHILS PERCENT MAN 48 % (41-73); TOTAL CELLS COUNTED 25
--- NOTE | 2019-02-11 06:14 | NUR ---
SHIFT SUMMARY SEE PREVIOUS NOTES FOR SHIFT. PT REMAINS ALERT, SLOW TO RESPOND BUT ABLE TO MAKE NEEDS KNOWN. EX DON HAS BEEN W/ PT ALL NIGHT, UPDATED ON AM LAB RESULTS AND WANTED TO TAKE A PICTURE OF COMPUTER. ADVISED HIM THAT THIS IS NOT ALLOWED BUT IS WELCOME TO WRITE THEM DOWN HIMSELF WHICH HE DID TO SHARE WITH DIANNE. PT CONTINUES TO DENY PAIN BUT HAS BEEN MEDICATED X 2 FOR ANXIETY. ORAL CARE COMPLETED FREQUENTLY T/O SHIFT, MOUTH REMAINS SORE BUT TOLERATING COOL WATER AND PO MEDS WELL. PER DON, PT ENJOYED [employer] MAGIC CUP ICE CREAM AND ASKED THAT IT BE PROVIDED ON MEAL TRAYS-ADDED TO ORDER. BP LOW BUT WITH MAP >60 WITH SLEEP AND INCREASES WHEN AWAKE, ECG SHOWS SR W/ OCCASIONAL PAC'S AND O2 SATS CURRENTLY 93% ON RA.
--- NOTE | 2019-02-11 08:44 | NUR ---
CARE ASSUMED CARE AND REPORT ASSUMED FROM DANIEL BERNARD. PT SLEEPING BUT AWAKENS TO VERBAL STIMULI. SLOW TO RESPOND. ORIENTED X 3. SIGNIFICANT OTHER AT BEDSIDE. C/O PAIN. MD CORNELL CALLLED FOR PAIN MEDS; T.O. GIVEN FOR NORCO. PT SWALLOWS PILLS WITHOUT ANY SIGNS OF ASPIRATION OR CHOKING. TENDER TO TOUCH OVER ENTIRE BODY. HAS ULCERATIVE SORES IN MOUTH WITH SOME THAT ARE BLISTER LIKE. VSS. NSR, HR 90S AND BP STABLE. SPO2 93% ON RA. LUNG SOUNDS CLEAR. CALL LIGHT WITHIN REACH. WILL CONTINUE TO MONITOR.
--- NOTE | 2019-02-11 13:02 | NUR ---
REASSESSMENT HOB ELEVATED AND PT ENCOURAGED PT TO EAT LUNCH. FAMILY BEDSIDE. VSS. NSR, HR 90S AND BP STABLE. DENIES PAIN AT THIS TIME UNLESS EXTREMITIES ARE MOVED. VERY LITTLE APPETITE. CLIMIX GTT STARTED. AFEBRILE. WILL CONTINUE TO MONITOR PT.
--- NOTE | 2019-02-11 15:49 | NUR ---
REASSESSMENT PT REMAINS ON BEDREST AND WANTS TO SLEEP. SHE DOES NOT WANT TO INTERACT MUCH AND COMPLAINS WHEN CARE IS GIVEN OR SHE HAS TO MOVE. FAMILY CONTINUALLLY TRING TO STIMULATE HER AND KEEP HER AWAKE. SO AND SON PERSISTENTLY STATE THAT SHE NEEDS TO REMAIN AWAKE DURING THE DAY. EXPLAINED TO THEM FEW TIMES TODAY THAT SHE IS WEAK AND TIRED AND RECOVERY IS A SLOW PROCESS. VSS. CLINIMIX INFUSING. AFEBRILE. PT RECEIVED BEDBATH AND LINEN CHANGE SINCE LAST ASSESSMENT. CALL LIGHT WITHIN REACH. WILL CONTINUE TO MONITOR.
--- NOTE | 2019-02-11 18:32 | NUR ---
SHIFT SUMMARY PT REMAINED ON BEDREST ENTIRE SHIFT. ENCOURAGED MOVEMENT AND CONTINUAL USE OF EXTREMITIES ALONG WITH ASSIST WHEN TURNING. PT OFTEN REFUSED AND WOULD MOAN. NORCO 1 TAB GIVEN IN AM FOR PAIN AND SINCE THEN, PAIN HAS BEEN CONTROLLED. CLINIMIX STARTED THIS AFTERNOON, ALONG WITH PROBIOTICS. FAMILY IN/OUT OF ROOM ENTIRE SHIFT. HAD 2 UNMEASURED VOIDS/SOILED BRIEFS. ORAL CARE DONE NEEDED. VSS. REMAINS IN NSR, HR 80S WITH STABLE BP. AFEBRILE. TURNED Q2H TOLERATED. ATE FEW BITES OF FOOD FOR BOTH BREAKFAST AND LUNCH, BUT ASKED THAT DINNER BE HELD. MULTIPLE CONVERATIONS WERE HAD WITH SO AND SON ABOUT PTS CURRENT STATUS AND SYMPTOMS SHE IS HAVING; THEY DISPLAY MINIMAL UNDERSTANDING OF CURRENT PRESENTATION. THERE WAS MENTION OF HOSPICE, BUT FAMILY STATED THEY WERE NOT READY FOR FURTHER CONVERSTAION OF HOSPICE AT THIS TIME. WILL GIVE BEDSIDE, HANDOFF REPORT TO NOC RN.
--- NOTE | 2019-02-11 20:39 | NUR ---
ASSUMED CARE OF PT, REPORT RCV'D FROM MARCO ANTONIO WALKER. PT DROWSY BUT AROUSABLE, ORIENTED AND ABLE TO APPROPRIATELY ANSWER QUESTION AND FOLLOW COMMANDS. PT'S FAMILY AT BEDSIDE TRYING TO AROUSE PT AND KEEP HER AWAKE. FAMILY REMINDED OF THE IMPORTANCE OF LETTING PT REST NEEDED. PT'S VITAL SIGNS STABLE. PT EDEMETOUS T/O, LLE RED AND WARM TO THE TOUCH D/T LARGE BILATERAL DVT'S. PT UNABLE TO BE ANTICOAGULATED D/T LOW PLATELET LEVELS. PT DENIES PAIN OR NEEDS AT THIS TIME. SEE FULL SHIFT ASSESSMENT.
[2019-02-12 04:08] LABS: Hematocrit 32.8 % (33.0-51.0); Hemoglobin 11.1 g/dL (11.5-16.0); Mean Corpuscular HGB 31.4 pg (26.0-34.0); Mean Corpuscular HGB Conc 33.8 g/dL (31.5-36.5); Mean Corpuscular Volume 93 fL (80-100); Mean Platelet Volume 8.8 fL (9.1-12.4); RDW Coefficient Variation 17.1 % (11.7-14.2); RDW Standard Deviation 59.3 fL (35.1-46.3); Red Blood Cell Count 3.54 M/mm3 (3.80-5.20); White Blood Cell Count 3.26 K/mm3 (4.00-11.30)
[2019-02-12 04:10] LABS: Platelet Count 9 K/mm3 (150-400)
[2019-02-12 04:26] LABS: Anion Gap 8 mmol/L (6-16); Blood Urea Nitrogen 52 mg/dL (8-24); CO2, Blood 22 mmol/L (21-32); Calcium, Blood 8.6 mg/dL (8.5-10.1); Chloride, Blood 104 mmol/L (98-108); Creatinine, Blood 0.74 mg/dL (0.40-1.00); Glomerular Filtration Rate >60 (60-); Glucose, Blood 130 mg/dL (70-99); Potassium, Blood 4.4 mmol/L (3.5-5.5); Sodium, Blood 134 mmol/L (136-145)
[2019-02-12 04:35] LABS: BAND PERCENT MAN 27 % (0-8); BASOPHILS PERCENT MAN 0 % (0-2); EOSINOPHILS PERCENT MAN 0 % (0-6); LYMPHOCYTES ABSOLUTE MAN 0.06 K/mm3 (0.84-5.20); LYMPHOCYTES PERCENT MAN 2 % (21-46); METAMYELOCYTE ABSOLUTE MAN 0.03 K/mm3 (0.00-0.00); METAMYELOCYTE PERCENT MAN 1 % (0-0); MONOCYTES ABSOLUTE MAN 0.22 K/mm3 (0.16-1.47); MONOCYTES PERCENT MAN 7 % (4-13); MYELOCYTE ABSOLUTE MAN 0.09 K/mm3 (0.00-0.00); MYELOCYTE PERCENT MAN 3 % (0-0); NEUTROPHILS ABSOLUTE MAN 2.83 K/mm3 (1.96-9.15); SEG NEUTROPHILS PERCENT MAN 60 % (41-73); TOTAL CELLS COUNTED 100
--- NOTE | 2019-02-12 06:07 | NUR ---
SHIFT SUMMARY PT DROWSY BUT ORIENTED. FOLLOWS DIRECTIONS, ANSWERS QUESTION APPROPRIATELY. PT WITHDRAWN OVERNIGHT WITH PERIODS OF CRYING STATING THAT SHE WAS "TIRED, SAD, AND FRUSTRATED". IT APPEARS THAT PT IS MORE WILLING TO SHARE NEEDS AND EMOTIONS WHEN SIGNIFICANT OTHER IS OUT OF THE ROOM PT HAS DENIED PAIN UNTIL 0600 WHEN SHE STATED 10/10 PAIN "ALL OVER". PT CURRENTLY RECEIVING 1 BAG PLATELETS. PT HAD VERY MINIMAL OUTPUT THROUGH RECTAL TUBE AND WAS INCONTINENT OF URINE ON 2 OCCASIONS. 3+ BLE EDEMA, BUE EDEMA PRESENT L>R. INFUSION STOPPED IN LEFT POWERGLIDE PATIENTS ARM BECAME MORE SWOLLEN AND TENDER, POSSIBLE INFILTRATION. VSS. WILL REPORT TO DAYSHIFT NURSE.
--- NOTE | 2019-02-12 11:12 | NUR ---
PT A/O BUT VERY FATIGUED AND SOMEWHAT WITHDRAWN. PT IS PAINFUL WITH MOVEMENT BUT IS ABLE TO RELAX AFTER CARE IS DONE. FRONT NAZ AREA HAS SURFACE BREAKDOWN AND CLEANING AND CARE PROVIDED. DAVIS IS BEING ORDERED AND WILL PLACE ANT. FAMILY IS IN ROOM AND ATTENTIVE TO PT. PT LUE HAS PULSES BUT IS VERY EDEMATIS AND BRENDON POWERGLIDE WAS D/C AND U.S. OF ARM WAS PREFORMED. IS TAKING PO LIQUIDS W/O DISTRESS BUT NOT WANTING ANY FOOD AT THIS TIME.
[2019-02-12 12:56] LABS: Source, Urine Catheter
[2019-02-12 13:11] LABS: Blood, Urine 2+ (Neg); Glucose Qualitative, Urine Neg (Neg); Ketones, Urine Neg (Neg); Leukocyte Esterase, Urine 1+ (Neg); Nitrite, Urine Neg (Neg); Protein, Urine 1+ (Neg); Urobilinogen, Urine NORM (Normal)
[2019-02-12 13:37] LABS: Appearance, Urine Clear (Clear); Bilirubin, Urine 2+ (Neg); Color, Urine Orange (P-Yellow)
[2019-02-12 13:49] LABS: Bacteria Few /hpf; Squamous Epithelial Cells Few /hpf (Few); Yeast/Fungi Urine Few /hpf
--- NOTE | 2019-02-12 14:13 | NUR ---
DAVIS CATH PLACED PER ELEANOR BERNARD W/O DIFFICULTY AND UA SENT. PT DID HAVE SOME PHYSICAL DISTRESS WITH MOVEMENT BUT THIS IMPROVED REPOSITIONED FOR COMFORT. THIS WAS DONE AT APPROX. 1145 AM.
--- NOTE | 2019-02-12 18:13 | NUR ---
PT HAS RESTED QUIETLY MOST OF DAY EXCEPT WHEN CARED FOR. PT SET UP TONIGHT TO EAT BUT ONLY HAD SMALL AMOUNTS AND THEN REQUESTED TO LAY BACK DOWN. PT VS NOTED AND IMPROVED READINGS PER R WRIST. PT HAS RECTAL TUBE IN WITH MINIMAL OUT AND DAVIS WAS PLACED AND DRAINING ORANGE URINGE AND NAZ AREA SKIN GIVEN EXTRA CLEANING NURTASHIELD LOTION APPLIED. PT CLINIMIX CONT TO INFUSE AT 125ML VIA MEDIPORT. EXTREMETIES ARE ELEVATED DUE TO EDEMA X4. VS AND I/O NOTED.
--- NOTE | 2019-02-12 19:40 | NUR ---
ASSUMED CARE BEDSIDE REPORT RECIEVED. PT IS RESTING QUIETLY. PT AROUSES TO VERBAL STIMULI AND IS ALERT AND ORIENTED WHEN AWAKE. PT IS SLOW TO RESPOND, BUT ANSWERS ALL QUESTIONS APPROPRIATELY. PT DENIES PAIN OR DISCOMFORT AT THIS TIME. VITAL SIGNS STABLE WITH PT ON ROOM AIR. MEDIPORT TO RIGHT UPPER CHEST WITH CLINIMIX INFUSING AT 125 ML/HR. PT WITH DAVIS IN PLACE WITH YELLOW URINE OUTPUT NOTED. RECTAL TUBE INPLACE WITH LIQUID BROWN STOOL NOTED. PT WITH SIGNIFICANT SWELL TO LEFT UPPER ARM DUE TO PREVIOUS POWER GLIDE INFLILTRATIONS. DISTAL PULSES PRESENT AND ARM IS WARM TO TOUCH. SENSATION INTACT. PT WITH BLE EDEMA AND BRUISING NOTED. PT SPOUSE AND SON AT BEDSIDE. PT SPOUSE EXTENSIVELY EDUCATED AND REASSURED ABOUT PLAN OF CARE FOR PT. PT SPOUSE IS HYPERFOCUSED ABOUT PLATELET COUNT AND HAS EXPRESSED CONCERNS ABOUT THE PHYSICIANS TAKING CARE OF THE PT. PT NOTIFIED THAT THE PRIMARY PHYSICIANS WILL NOT BE IN UNTIL THE MORNING AND HE WILL BE ABLE TO DISCUSS CONCERNS WITH THEM AT THAT TIME. PT SPOUSE IS AGREEABLE AT THIS TIME TO WAIT UNTIL THE AM TO DISCUSS WHEN PHYSICIANS START ROUNDING. WILL CONTINUE TO MONITOR.
--- NOTE | 2019-02-12 23:47 | NUR ---
ASSUMED CARE OF PATIENT. PATIENT SLEEPING AWAKENS TO SLIGHT STIMULI, ANSWERING QUESTIONS APPROPRIATELY. REQUESTING NOT TO BE TURNED, SHIFTING SLIGHTLY TO LEFT.
[2019-02-13 03:59] LABS: BASOPHILS ABSOLUTE AUTO 0.04 K/mm3 (0.00-0.23); BASOPHILS PERCENT AUTO 1 % (0-2); Hematocrit 29.8 % (33.0-51.0); Hemoglobin 10.2 g/dL (11.5-16.0); LYMPHOCYTES ABSOLUTE AUTO 0.03 K/mm3 (0.84-5.20); LYMPHOCYTES PERCENT AUTO 0 % (21-46); MONOCYTES ABSOLUTE AUTO 0.38 K/mm3 (0.16-1.47); MONOCYTES PERCENT AUTO 6 % (4-13); Mean Corpuscular HGB 31.6 pg (26.0-34.0); Mean Corpuscular HGB Conc 34.2 g/dL (31.5-36.5); Mean Corpuscular Volume 92 fL (80-100); RDW Standard Deviation 57.1 fL (35.1-46.3); Red Blood Cell Count 3.23 M/mm3 (3.80-5.20); White Blood Cell Count 6.67 K/mm3 (4.00-11.30)
[2019-02-13 04:01] LABS: EOSINOPHILS PERCENT AUTO 0 % (0-6); IMMATURE GRAN ABSOLUTE AUTO 0.87 K/mm3 (0.00-0.10); IMMATURE GRAN PERCENT AUTO 13 % (0-1); NEUTROPHILS ABSOLUTE AUTO 5.35 K/mm3 (1.96-9.15); NEUTROPHILS PERCENT AUTO 80 % (41-73); Platelet Count 11 K/mm3 (150-400)
[2019-02-13 04:21] LABS: Alanine Aminotransfer (ALT/SGP 40 U/L (12-78); Albumin, Blood 1.8 g/dL (3.4-5.0); Albumin/Globulin Ratio 0.8 (0.8-1.8); Alk Phos 113 U/L (50-136); Anion Gap 8 mmol/L (6-16); Aspartate Aminotrans (AST/SGOT 42 U/L (12-37); Bilirubin, Total 5.3 mg/dL (0.1-1.0); Blood Urea Nitrogen 50 mg/dL (8-24); Bun/Creatinine Ratio 78.2 (12.0-20.0); CO2, Blood 23 mmol/L (21-32); Calcium, Blood 8.6 mg/dL (8.5-10.1); Chloride, Blood 104 mmol/L (98-108); Creatinine, Blood 0.64 mg/dL (0.40-1.00); Globulin, Blood 2.4 g/dL (2.2-4.0); Glomerular Filtration Rate >60 (60-); Glucose, Blood 105 mg/dL (70-99); Phosphorus, Blood 4.6 mg/dL (2.5-4.9); Potassium, Blood 5.1 mmol/L (3.5-5.5); Sodium, Blood 135 mmol/L (136-145); Total Protein, Blood 4.2 g/dL (6.4-8.2)
[2019-02-13 04:28] LABS: BAND PERCENT MAN 11 % (0-8); BASOPHILS PERCENT MAN 0 % (0-2); EOSINOPHILS PERCENT MAN 0 % (0-6); LYMPHOCYTES ABSOLUTE MAN 0.13 K/mm3 (0.84-5.20); LYMPHOCYTES PERCENT MAN 2 % (21-46); METAMYELOCYTE ABSOLUTE MAN 0.06 K/mm3 (0.00-0.00); METAMYELOCYTE PERCENT MAN 1 % (0-0); MONOCYTES PERCENT MAN 9 % (4-13); PROMYELOCYTE ABSOLUTE MAN 0.06 K/mm3 (0.00-0.00); PROMYELOCYTE PERCENT MAN 1 % (0-0); SEG NEUTROPHILS PERCENT MAN 76 % (41-73); TOTAL CELLS COUNTED 100
--- NOTE | 2019-02-13 06:03 | NUR ---
SUMMARY PATIENT RESTING QUIETLY, AWAKENS TO SLIGHT STIMULI. C/O PAIN TO HER LEFT SIDE AND "EVERYWHERE" NORCO GIVEN FOR PAIN. FLEXI-SEAL RECTAL TUBE REMAINS IN PLACE WITH SMALL AMT OF LIQUID BROWN STOOL CONTAINED IN TUBING. GENERALIZED EDEMA CONTINUES, MORE SO TO HER LEGS AND LEFT UPPER ARM. PATIENTS AT BEDSIDE T/O NIGHT. PATIENT MICHAEL PO MEDS WELL WITH SIPS OF WATER.
--- NOTE | 2019-02-13 11:07 | NUR ---
PT RESTING WELL AND EASILY AROUSED. PT DENIES CURRENT PAIN OR DISTRESS. VS NOTED. RECTAL TUBE PATENT BUT SMALL VOLUMES. DAVIS IS PATENT ORANGE COLORED URINE. ...PLATLETS STARTED.. SEE EMAR.
--- NOTE | 2019-02-13 17:26 | NUR ---
PT IS RESTING WELL AFTER NG PLACED AND PIVOT IS INFUSING AT 15ML AND WILL REPORT TO NOC. PT VSS. I/O NOTED. PT R UPPER ARM BLISTER REMAINS INTACT AND ARMS AND LEGS ELEVATED ON PILLOWS. THERE IS NO EVIDENCE OF BLEEDING OF NARES OR C/O DISCOMFORT NOTED.
--- NOTE | 2019-02-13 21:37 | NUR ---
PATIENT RESTING QUIETLY AWAKENS TO SLIGHT STIMULI, ORIENTATED X3, FALLING BACK TO SLEEP WHEN UNDISTURBED. GENERALIZED EDEMA CONTINUES MORE SO TO LEFT UPPER ARM AND BOTH LEGS. PATIENT DENIES PAIN AT THIS TIME. NG IN PLACE WITH PIVIT 1.5 RUNNING AT 15CC/HR. NS TKO PLACED TO MEDIPORT TO KEEP PORT ACCESSED.
--- NOTE | 2019-02-14 02:39 | NUR ---
PATIENT RESTING QUIETLY, AWAKENS TO SLIGHT STIMULI. TF INCREASED TO 25/HR.
[2019-02-14 04:26] LABS: BASOPHILS ABSOLUTE AUTO 0.04 K/mm3 (0.00-0.23); BASOPHILS PERCENT AUTO 1 % (0-2); Hematocrit 29.7 % (33.0-51.0); LYMPHOCYTES ABSOLUTE AUTO 0.03 K/mm3 (0.84-5.20); LYMPHOCYTES PERCENT AUTO 1 % (21-46); MONOCYTES ABSOLUTE AUTO 0.55 K/mm3 (0.16-1.47); MONOCYTES PERCENT AUTO 9 % (4-13); Mean Corpuscular HGB 31.6 pg (26.0-34.0); Mean Corpuscular HGB Conc 33.7 g/dL (31.5-36.5); Mean Corpuscular Volume 94 fL (80-100); Mean Platelet Volume 10.2 fL (9.1-12.4); RDW Coefficient Variation 16.8 % (11.7-14.2); Red Blood Cell Count 3.16 M/mm3 (3.80-5.20); White Blood Cell Count 6.29 K/mm3 (4.00-11.30)
[2019-02-14 04:28] LABS: EOSINOPHILS PERCENT AUTO 0 % (0-6); IMMATURE GRAN ABSOLUTE AUTO 0.58 K/mm3 (0.00-0.10); IMMATURE GRAN PERCENT AUTO 9 % (0-1); NEUTROPHILS ABSOLUTE AUTO 5.09 K/mm3 (1.96-9.15); NEUTROPHILS PERCENT AUTO 81 % (41-73); Platelet Count 22 K/mm3 (150-400)
[2019-02-14 04:43] LABS: BAND PERCENT MAN 6 % (0-8); BASOPHILS PERCENT MAN 0 % (0-2); EOSINOPHILS PERCENT MAN 0 % (0-6); METAMYELOCYTE ABSOLUTE MAN 0.06 K/mm3 (0.00-0.00); METAMYELOCYTE PERCENT MAN 1 % (0-0); MONOCYTES ABSOLUTE MAN 0.18 K/mm3 (0.16-1.47); MONOCYTES PERCENT MAN 3 % (4-13); NEUTROPHILS ABSOLUTE MAN 6.03 K/mm3 (1.96-9.15); SEG NEUTROPHILS PERCENT MAN 90 % (41-73); TOTAL CELLS COUNTED 100
[2019-02-14 04:45] LABS: Anion Gap 8 mmol/L (6-16); Blood Urea Nitrogen 40 mg/dL (8-24); Bun/Creatinine Ratio 72.6 (12.0-20.0); CO2, Blood 22 mmol/L (21-32); Calcium, Blood 8.1 mg/dL (8.5-10.1); Chloride, Blood 105 mmol/L (98-108); Creatinine, Blood 0.55 mg/dL (0.40-1.00); Glomerular Filtration Rate >60 (60-); Glucose, Blood 96 mg/dL (70-99); Magnesium, Blood 1.7 mg/dL (1.6-2.4); Phosphorus, Blood 3.9 mg/dL (2.5-4.9); Potassium, Blood 5.2 mmol/L (3.5-5.5); Sodium, Blood 135 mmol/L (136-145)
--- NOTE | 2019-02-14 06:20 | NUR ---
SUMMARY PATIENT SLEEPING OFF AND ON T/O NIGHT. A&O X3 WHEN AWAKE. GENERALIZED EDEMA CONTINUES. NG IN PLACE WITH TUBE FEEDING NOW AT 25CC/HR WITH MIN RESIDUAL. PATIENT MICHAEL SIPS OF WATER, BUT HAS DIFFICULTY SWALLOWING TABLETS WITH NG IN PLACE SO ALL ORAL MEDICATIONS GIVEN VIA NG. RECTAL TUBE IN PLACE DRAINING SCANT AMT OF LIQUID BROWN STOOL. AND SON AT BEDSIDE PROVIDING GOOD SUPPORT. VSS T/O NIGHT.
--- NOTE | 2019-02-14 08:51 | NUR ---
CARE ASSUMED CARE AND REPORT ASSUMED FROM PARDEEP BERMUDEZ RN. PT SLEEPING BUT EASILY AROUASABLE. COMPLAINS OF GENERAL PAIN THIS AM 7/10, NORCO TAB GIVEN PER TUBE. LUNG SOUNDS CLEAR, SPO2 92-95% ON RA. NSR, HR 90-110. BP STABLE. AFEBRILE. BEDSIDE AND HIS QUESTIONS ANSWERED IN DETAIL. PT TURNED AND NECESSITY FOR HIGH TURN EXPLAINED TO PT. RECTAL TUBE SECURED; WILL MONITOR OUTPUT TODAY. DAVIS CATH SECURED; ORANGE COLORED URINE. PIVOT 1.5 INFUSING AT 25 ML/HR; WILL INCREASE PER ORDER. PT ON BEDREST FOR BILAT LE DVTS. TKO INFUSING INTO PORT IN CHEST. CALL LIGHT WITHIN REACH. WILL CONTINUE TO MONITOR.
[2019-02-14 09:11] LABS: HEPARIN INDUCED PLATELET AB 0.176 OD (0.000-0.400)
--- NOTE | 2019-02-14 11:28 | NUR ---
REASSESSMENT PT REMAINS ON BEDREST. SON BEDSIDE AND UPDATED ON TREATMENT PLAN. EXTENSIVE ORAL CARE DONE TO REMOVE DRIED CRUSTS FROM MOUTH. PT STATES PAIN IMPROVED. CONTINUES TO HAVE LARGE, FLIQUID FILLED BLISTER ON R UPPER INNER ARM. TURNED AND HOB ELEVATED. TKO CONTINUES TO INFUSE INTO PORT. LUNG SOUNDS CLEAR. CALL LIGHT WITHIN REACH. WILL CONTINUE TO MONITOR.
--- NOTE | 2019-02-14 14:47 | NUR ---
ISOLATION REMOVED PER MD BETH, ISOLATION CAN BE LIFTED SINCE PT'S BLOOD CULTURES ARE SENSITIVE TO MULITPLE ANTIBIOTICS.
--- NOTE | 2019-02-14 16:27 | NUR ---
REASSESSMENT PT RECIEVED COMPLETE BEDBATH AND LINEN CHANGE. WAS ABLE TO ASSIST WITH TURNING AND MOVING EXTREMITIES. PAIN CONTROLLED AT THIS TIME. SKIN EDEMATOUS OVER ENTIRE BODY. ATTETMPTED TO CLEAN PTS MOUTH AGAIN AND SCRAPE THE DRIED SCABS OUT OF MOUTH BUT PT NOT TOLERATING WELL AND WAS GAGGING. VSS. AFEBRILE. TKO REMAINS INFUSING INTO PORT. PT TEARFUL AND STATES SHE DOES NOT KNOW WHAT SHE WANTS BUT DID NOT WANT TO ENGAGE IN FURTHER CONVERSATION WHEN ASKED ABOUT HER WANTS. WILL CONTINUE TO MONITOR.
--- NOTE | 2019-02-14 18:13 | NUR ---
SHIFT SUMMARY PT ON BEDREST ENTIRE SHIFT DUE TO BLE DVTS AND NO CURRENT ANTICOAGULATION TREATMENT. VSS ENTIRE SHIFT AND IN NSR-SIT. BP STABLE. PT SLEPT MOST OF DAY. TOLERATED TF WITH MINIMAL RESIDUAL. TF CURRENTLY AT 35 ML/HR. TKO INFUSED INTO PORT ENTIRE SHIFT. TURNED OFTEN TOLERATED AND HOB ELEVATED. COMPLETE BEDBATH LINEN CHANGE GIVEN. AND SON IN/OUT OF ROOM DURING ENTIRE SHIFT. NORCO 1 TAB GIVEN FOR PAIN CONTROL. BLISTER REMAINS INTACT ON L UPPER INNER ARM. WILL GIVE BEDSIDE, HANDOFF REPORT TO TOD BERNARD.
--- NOTE | 2019-02-14 21:25 | NUR ---
ASSUMED CARE OF PT, REPORT RCV'D FROM MARCO ANTONIO WALKER. PT ALERT AND ORIENTED SITTING UP IN BED. PT'S S/O AT BEDSIDE. PT MUCH MORE AWAKE AND RESPONSIVE THEN PREVIOUS SHIFT. TF PIVOT 1.5 @ 30 ML/HR, GOAL RATE 55 ML/HR WITH 30 ML Q4 FLUSH. DAVIS AND RECTAL TUBE PATENT AND DRAINING TO GRAVITY. PT DENIES PAIN OR NEEDS AT THIS TIME. SEE FULL SHIFT ASSESSMENT.
[2019-02-15 04:15] LABS: Hematocrit 28.6 % (33.0-51.0); Hemoglobin 9.5 g/dL (11.5-16.0); Mean Corpuscular HGB 30.9 pg (26.0-34.0); Mean Corpuscular HGB Conc 33.2 g/dL (31.5-36.5); Mean Corpuscular Volume 93 fL (80-100); Mean Platelet Volume 10.5 fL (9.1-12.4); RDW Coefficient Variation 16.9 % (11.7-14.2); Red Blood Cell Count 3.07 M/mm3 (3.80-5.20); White Blood Cell Count 4.93 K/mm3 (4.00-11.30)
[2019-02-15 04:17] LABS: Platelet Count 17 K/mm3 (150-400)
[2019-02-15 04:31] LABS: International Normalized Ratio 1.29; Prothrombin Time Results 13.4 Sec (9.7-11.5)
[2019-02-15 04:39] LABS: Alanine Aminotransfer (ALT/SGP 43 U/L (12-78); Albumin, Blood 1.8 g/dL (3.4-5.0); Albumin/Globulin Ratio 0.7 (0.8-1.8); Alk Phos 192 U/L (50-136); Anion Gap 5 mmol/L (6-16); Aspartate Aminotrans (AST/SGOT 47 U/L (12-37); Bilirubin, Direct 3.2 mg/dL (0.0-0.3); Bilirubin, Indirect 0.9 mg/dL (0.1-0.7); Bilirubin, Total 4.1 mg/dL (0.1-1.0); Blood Urea Nitrogen 35 mg/dL (8-24); Bun/Creatinine Ratio 72.3 (12.0-20.0); CO2, Blood 26 mmol/L (21-32); Calcium, Blood 8.1 mg/dL (8.5-10.1); Chloride, Blood 108 mmol/L (98-108); Creatinine, Blood 0.48 mg/dL (0.40-1.00); Globulin, Blood 2.6 g/dL (2.2-4.0); Glomerular Filtration Rate >60 (60-); Glucose, Blood 122 mg/dL (70-99); Magnesium, Blood 1.6 mg/dL (1.6-2.4); Phosphorus, Blood 3.3 mg/dL (2.5-4.9); Potassium, Blood 4.7 mmol/L (3.5-5.5); Sodium, Blood 139 mmol/L (136-145); Total Protein, Blood 4.4 g/dL (6.4-8.2)
[2019-02-15 05:38] LABS: BAND PERCENT MAN 10 % (0-8); BASOPHILS PERCENT MAN 0 % (0-2); EOSINOPHILS PERCENT MAN 0 % (0-6); LYMPHOCYTES ABSOLUTE MAN 0.04 K/mm3 (0.84-5.20); LYMPHOCYTES PERCENT MAN 1 % (21-46); METAMYELOCYTE ABSOLUTE MAN 0.04 K/mm3 (0.00-0.00); METAMYELOCYTE PERCENT MAN 1 % (0-0); MONOCYTES ABSOLUTE MAN 0.49 K/mm3 (0.16-1.47); MONOCYTES PERCENT MAN 10 % (4-13); NEUTROPHILS ABSOLUTE MAN 4.33 K/mm3 (1.96-9.15); SEG NEUTROPHILS PERCENT MAN 78 % (41-73); TOTAL CELLS COUNTED 100
--- NOTE | 2019-02-15 05:51 | NUR ---
ASSUMED CARE/SHIFT SUMMARY ASSUMED CARE OF PT AT 0230. REPORT RECIEVED. PT HAS BEEN RESTING QUIETLY IN BED THIS MORNING. PT AWAKENS EASILY TO VERBAL STIMULI AND IS ALERT AND ORIENTED WHEN AWAKE. PT COMPLAINS OF PAIN THIS AM WITH REPOSITIONING. PT MED PER EMAR. VITAL SIGNS STABLE. PT ON ROOM AIR. MEDIPORT WITH NS TKO INFUSING. PT WITH NG FEEDING TUBE IN PLACE WITH TF AT 55 ML/HR. DAVIS IN PLACE WITH ORANGE URINE OUTPUT NOTED. RECTAL TUBE IN PLACE WITH LIQUID BROWN OUTPUT NOTED. PT WITH DEEP BILATERAL LOWER EXTREMITY EDEMA. SWELLING AND BLISTER TO LUE NOTED. PT SPOUSE AT BEDSIDE. WILL CONTINUE TO MONITOR AND REPORT OFF TO ONCOMING RN.
--- NOTE | 2019-02-15 07:30 | NUR ---
ASSUMED CARE OF PATIENT; SEE ASSESSMENT CHARTING FOR DETAILS. PATIENT SLEEPING BUT ROUSES TO VERBAL STIMULI. SPOUSE AT BEDSIDE; ATTENTIVE TO PATIENT AND ASKS STAFF LOTS OF QUESTIONS; MANY OF THE SAME QUESTIONS FREQUENTLY. LUNGS CLEAR; NO ACUTE RESP. ISSUES. DAVIS DRAINING MOD. AMOUNTS OF LT RJ URINE. RECTAL TUBE TO GRAVITY; SCANT DK BROWN STOOL NOTED. MONITOR REMAINS NSR TO ST; VSS AND AFEBRILE. LABS CONT. TO IMPROVE BUT PLATELET COUNTS REMAIN LOW.
--- NOTE | 2019-02-15 09:30 | NUR ---
L UPPER ARM WITH WOUNDS/BLISTERS; LARGE BLISTER HAS POPPED; LARGE AMOUNTS OF SANGUINOUS FLUID ON PAD. CLEANSED AND DRESSED; VASELINE PAD TO AFFECTED AREAS AND COVERED OVER WITH MEPILEX; SECURED WITH KERLEX WRAP.
--- NOTE | 2019-02-15 10:30 | NUR ---
RAY TUBE NOT FLUSHING AND APPEARS TO BE LEAKING. CHARGE NURSE, MOJGAN, PULLED TUBE BACK SLOWLY AND THEN RETRIED TO FLUSH; ENDED UP HAVING TO PULL TUBE OUT; LARGE KINK NOTED ABOVE HOLES OF TUBE. DOBBHOFF FEEDING TUBE PLACED BY Tyshawn COLON RN WITHOUT DIFFICULTY; WENT DOWN R NARE; KYJELLY USED TO SOFTEN AND PROTECT NARE. CXR DONE FOR PLACEMENT; RADIOLOGIST INFORMED NURSE THAT TUBE IS IN DISTAL STOMACH AND CAN BE USED FOR FEEDINGS. TUBE FEEDINGS INITIATED PER PRIOR ORDERS.
--- NOTE | 2019-02-15 11:05 | NUR ---
ATIVAN 1MG IV FOR MILD TO MOD ANXIETY; RESTFUL FOLLOWING MEDICATION. SPOUSE LEAVING FOR WORK AND SON IN TO RELIEVE HIM; FAMILY VERY ATTENTIVE.
[2019-02-15 16:17] LABS: Mean Platelet Volume 11.8 fL (9.1-12.4)
[2019-02-15 16:20] LABS: Platelet Count 32 K/mm3 (150-400)
--- NOTE | 2019-02-15 18:00 | NUR ---
SUMMARY: OVERALL STATUS IMPROVED; REMAINS ON HEPARIN DRIP PER PHARMACY MANAGEMENT; NEXT PTT AT 1999. TOLERATING TUBE FEEDING; DOBBHOFF TUBE INTACT. NO MEASUREABLE STOOL OUTPUT THIS SHIFT. DAVIS PUT OUT >700ML. SLEEPING WHEN NOT DISTURBED; FAMILY IN/OUT. WILL REPORT TO ONCOMING RN.
--- NOTE | 2019-02-15 21:36 | NUR ---
ASSUMED CARE OF PT, REPORT RCV'D FROM MARCO ANTONIO STALEY. PT MUCH MORE ALERT AND ORIENTED THAN PREVIOUS SHIFTS. WHILE PROFOUNDLY WEAK, PT IS ATTEMPTING TO ASSIST IN CARE (I.E. TURNS). HEPARIN RUNNING AT 14 U/KG/HR. DOBHOFF IN PLACE WITH PIVOT 1.5 RUNNING AT GOAL RATE OF 55 ML/HR. RECTAL TUBE AND DAVIS PATENT AND DRAINING TO GRAVITY. PT'S VSS. NO COMPLAINT OF PAIN OR NEEDS AT THIS TIME. PT'S S/O AT BEDSIDE. SEE FULL SHIFT ASSESSMENT.
[2019-02-16 04:46] LABS: Magnesium, Blood 1.4 mg/dL (1.6-2.4); Phosphorus, Blood 3.3 mg/dL (2.5-4.9)
--- NOTE | 2019-02-16 06:14 | NUR ---
SHIFT SUMMARY NO ACUTE CHANGES OVERNIGHT. PT WAS ALERT AND ORIENTED AND ATTEMPTING TO ASSIST WITH CARE. PT DENIES PAIN OR ANXIETY OVERNIGHT AND HAD ONE EPISODE OF NAUSEA THAT WAS TREATED WITH ZOFRAN. 1200 ML DARK RJ URINARY OUTPUT VIA DAVIS. RECTAL TUBE IN PLACE, NO STOOL IN BAG BUT LOOSE STOOL NOTED IN TUBE. PT'S VSS. HEPARIN @ 13 U/KG/HR. WILL REPORT TO DAYSHIFT NURSE.
[2019-02-16 07:49] LABS: Hematocrit 26.2 % (33.0-51.0); Hemoglobin 8.6 g/dL (11.5-16.0); Mean Corpuscular HGB 31.2 pg (26.0-34.0); Mean Corpuscular HGB Conc 32.8 g/dL (31.5-36.5); Mean Corpuscular Volume 95 fL (80-100); Mean Platelet Volume 11.3 fL (9.1-12.4); RDW Coefficient Variation 16.9 % (11.7-14.2); RDW Standard Deviation 58.7 fL (35.1-46.3); Red Blood Cell Count 2.76 M/mm3 (3.80-5.20); White Blood Cell Count 4.71 K/mm3 (4.00-11.30)
--- NOTE | 2019-02-16 07:49 | NUR ---
ASSUMED CARE PT. ALERT THIS AM AWAKENS EASILY TO VERBAL STIMULI. PT. VSS THIS AM. CURRENTLY ON HEPARIN GTT. PT DENIES PAIN THIS AM. PT. CURRENTLY ON RA, LS CLEAR T/O. DOBHOFF IN PLACE WITH TF INFUSING AT 55ML/HR PIVOT 1.5 WITH 30CC FLUSH Q4H. PT WEAK HOWEVER ABLE TO QUIROS. PT CAREGIVER REMAINS AT BEDSIDE. NICOLASA.
[2019-02-16 07:53] LABS: Platelet Count 29 K/mm3 (150-400)
[2019-02-16 08:33] LABS: BAND PERCENT MAN 1 % (0-8); BASOPHILS PERCENT MAN 0 % (0-2); EOSINOPHILS PERCENT MAN 0 % (0-6); LYMPHOCYTES % ATYPICAL MANUAL 1 % (0-0); LYMPHOCYTES ABSOLUTE MAN 0.37 K/mm3 (0.84-5.20); LYMPHOCYTES PERCENT MAN 7 % (21-46); METAMYELOCYTE ABSOLUTE MAN 0.04 K/mm3 (0.00-0.00); METAMYELOCYTE PERCENT MAN 1 % (0-0); MONOCYTES ABSOLUTE MAN 0.51 K/mm3 (0.16-1.47); MONOCYTES PERCENT MAN 11 % (4-13); MYELOCYTE ABSOLUTE MAN 0.04 K/mm3 (0.00-0.00); MYELOCYTE PERCENT MAN 1 % (0-0); NEUTROPHILS ABSOLUTE MAN 3.72 K/mm3 (1.96-9.15); SEG NEUTROPHILS PERCENT MAN 78 % (41-73); TOTAL CELLS COUNTED 100
--- NOTE | 2019-02-16 18:03 | NUR ---
SHIFT SUMMARY PT. REMAINS ALERT AND ORIENTED. PT. UP TO BEDSIDE CHAIR WITH LIFT FOR THE MAJORITY OF TODAY AND TOLERATED WELL. BEGAN WORKING WITH PT/OT. PT. REMAINS ON DOBHOFF WITH TF AT GOAL OF 55ML/HR WITH FLUSH OF [id number]. PT. TOLERATING SIPS OF WATER T/O DAY. PT. CONTINUES WITH DAVIS AND RECTAL TUBE IN PLACE. PT DID LEAK AROUND RECTAL TUBE WHILE UP IN CHAIR, APPEARS TO REMAIN INTACT, STOOL CONTINUES TO BE LOOSE. PT. VSS T/O SHIFT. NO ACUTE CHANGES. REPORT TO VEE BERNARD.
--- NOTE | 2019-02-16 19:56 | NUR ---
ASSUMED CARE RECIEVED REPORT FROM ELEANOR. PT IS RESTING, BUT AROUSABLE AND WOKE UP UPON ENTERING ROOM. SON IS AT BEDSIDE. PT IS ALERT AND ORIENTED, ABLE TO EXPRESS SHE IS IN PAIN, LEFT LOWER LEG IS THROBBING. PT IS RECEIVING HEPARIN 13.5UNITS/KG/HOUR AND NS TKO. TUBE FEEDING AT GOAL 55ML/HR; PIVOT 1.5. RECTAL TUBE AND DAVIS BAG HANGING TO GRAVITY AND PATENT. BED LOW AND LOCKED, CALL LIGHT WITHIN REACH.
--- NOTE | 2019-02-16 21:43 | NUR ---
UPDATE CALLED PHARMACY TO REPORT APTT, NO CHANGES TO HEPARIN GTTP RATE AT THIS TIME. NEXT APTT DRAW WITH MORNING LABS. PT ASLEEP, SON AT BEDSIDE.
[2019-02-17 06:00] LABS: Hematocrit 27.1 % (33.0-51.0); Hemoglobin 8.7 g/dL (11.5-16.0); Mean Corpuscular HGB 31.1 pg (26.0-34.0); Mean Corpuscular HGB Conc 32.1 g/dL (31.5-36.5); Mean Corpuscular Volume 97 fL (80-100); Mean Platelet Volume 12.2 fL (9.1-12.4); RDW Coefficient Variation 16.7 % (11.7-14.2); RDW Standard Deviation 58.5 fL (35.1-46.3); White Blood Cell Count 4.39 K/mm3 (4.00-11.30)
[2019-02-17 06:06] LABS: Platelet Count 31 K/mm3 (150-400)
--- NOTE | 2019-02-17 06:12 | NUR ---
SHIFT SUMMARY PT SLEPT THROUGHOUT NIGHT. NO ACUTE CHANGES. HAPARIN AT 13.5UNITS/KG/HR AND NS TKO. AFEBRILE ALL NIGHT. PT REPORTS PAIN IN LEFT LOWER LEG, WHERE DVT EXISTS - 4/10 PAIN AT START OF SHIFT; 1/10 PAIN AT END. 1 TAB OF NORCO GIVEN WITH SENNAKOT GIVEN AT START OF SHIFT. PT STILL REMAINS EDEMATOUS IN ALL EXTREMETIES. TUBE FEEDING AT GOAL 55ML/HR, RESIDUALS ARE MINIMAL, BUT CAN BE TOUGH TO GET AN ACCURATE RESULT FROM A DOBHOB. BLOOD SUGARS STABLE. VITALS STABLE, SLIGHT ELEVATION OF HR (SEE VS). LABS TRENDING IN RIGHT DIRECTION. PLT = 31 (GOAL > 30 FOR HEPARIN GTTP). PTT @ 2000 = 45.6, AND 0501 = 44.7 (GOAL 40-50); NO CHANGE IN HEPARIN RATE AT THIS TIME. PT REPORTS NO N/V, N/T, NO PAIN ANYWHERE ELSE (ASIDE LEFT LEG). ADEQUATE URINE OUTPUT. NOT MUCH STOOL OUTPUT IN RECTAL TUBE/FLEXISEAL, GAVE SENNAKOT AT START OF SHIFT. BED LOW AND LOCKED, CALL LIGHT WITHIN REACH. SON SLEPT IN RECLINER THROUGHOUT NIGHT.
[2019-02-17 06:15] LABS: Alanine Aminotransfer (ALT/SGP 40 U/L (12-78); Albumin, Blood 1.7 g/dL (3.4-5.0); Albumin/Globulin Ratio 0.6 (0.8-1.8); Alk Phos 262 U/L (50-136); Anion Gap 3 mmol/L (6-16); Aspartate Aminotrans (AST/SGOT 47 U/L (12-37); Bilirubin, Total 2.6 mg/dL (0.1-1.0); Blood Urea Nitrogen 34 mg/dL (8-24); Bun/Creatinine Ratio 77.4 (12.0-20.0); CO2, Blood 29 mmol/L (21-32); Calcium, Blood 8.2 mg/dL (8.5-10.1); Chloride, Blood 108 mmol/L (98-108); Creatinine, Blood 0.44 mg/dL (0.40-1.00); Globulin, Blood 2.7 g/dL (2.2-4.0); Glomerular Filtration Rate >60 (60-); Glucose, Blood 121 mg/dL (70-99); Magnesium, Blood 1.5 mg/dL (1.6-2.4); Phosphorus, Blood 3.7 mg/dL (2.5-4.9); Potassium, Blood 4.4 mmol/L (3.5-5.5); Sodium, Blood 140 mmol/L (136-145); Total Protein, Blood 4.4 g/dL (6.4-8.2)
[2019-02-17 06:31] LABS: BAND PERCENT MAN 3 % (0-8); BASOPHILS ABSOLUTE MAN 0.04 K/mm3 (0.00-0.23); BASOPHILS PERCENT MAN 1 % (0-2); EOSINOPHILS PERCENT MAN 0 % (0-6); LYMPHOCYTES ABSOLUTE MAN 0.17 K/mm3 (0.84-5.20); LYMPHOCYTES PERCENT MAN 4 % (21-46); METAMYELOCYTE ABSOLUTE MAN 0.08 K/mm3 (0.00-0.00); METAMYELOCYTE PERCENT MAN 2 % (0-0); MONOCYTES ABSOLUTE MAN 0.39 K/mm3 (0.16-1.47); MONOCYTES PERCENT MAN 9 % (4-13); MYELOCYTE ABSOLUTE MAN 0.04 K/mm3 (0.00-0.00); MYELOCYTE PERCENT MAN 1 % (0-0); NEUTROPHILS ABSOLUTE MAN 3.64 K/mm3 (1.96-9.15); SEG NEUTROPHILS PERCENT MAN 80 % (41-73); TOTAL CELLS COUNTED 100
--- NOTE | 2019-02-17 07:51 | NUR ---
Recieved reort from Chevy BERNARD. Pateint supine in bed with HOB at 30 degrees. She is awake and alert and able to communicate her needs. She is on RA and sats 97%. She has Dobhoff tube to continuous TF. She is infusing Pivot 1.5 at 55ml/hr and 30ml q4 water flushes. She has escamilla in place draining to gravity light preston colored urine. She has right upper chest mediport access and in infusing NS at TKO and Heparin at 13.5 units/kg/hr. She has rectal tube in place with small amount of liquid stool. Her systolics 120's, ST low 100's, MAP >65. Son at bedside but will be leaving shortly.
--- NOTE | 2019-02-17 09:34 | NUR ---
{Patient awakens to verbal stimuli and is currently resting. Her Dobhoff tube worked well with am meds and continues TF's. Will get up in chair when awakens. She remains on RA.
--- NOTE | 2019-02-17 11:30 | NUR ---
Patient worked with speech and PT and went back to bed. She has been cleared for full liquids. She tolerated cranberry juice with ice. Remians on RA and sats mid 90% and continuous TF as well. Dr Parry added lasix and 1GM mag and was given.
--- NOTE | 2019-02-17 14:00 | NUR ---
Used ceiling lift and transfered patient into chair. She tolerated well. She has been drinking clear liquids without difficulty. Patient remains on RA and sats WNL's. She denies any current and is currently resting. Ex has gone home for the day and will be back tomorrow am.
--- NOTE | 2019-02-17 15:30 | NUR ---
Patient remains in chair by request. Changes dressing to BRENDON. VSS. Changed out TF set. No other significant changes and awaiting PCU bed to transfer.
--- NOTE | 2019-02-17 17:28 | NUR ---
Patient continues still up in [facility] by request and will be getting her back to bed for linen change and quick bath. VSS and she denioed wanting any dinner. TF continues.
--- NOTE | 2019-02-18 02:40 | NUR ---
UPDATE NO ACUTE CHANGES. 0100 PTT WAS SUBTHERAPEUTIC, DOSE ADJUST BY PHARMACY. CARA RN VERIFIED RATE CHANGE. SEE ORDERS.
[2019-02-18 03:24] LABS: BASOPHILS ABSOLUTE AUTO 0.01 K/mm3 (0.00-0.23); BASOPHILS PERCENT AUTO 0 % (0-2); EOSINOPHILS PERCENT AUTO 0 % (0-6); Hematocrit 23.9 % (33.0-51.0); Hemoglobin 7.8 g/dL (11.5-16.0); IMMATURE GRAN PERCENT AUTO 4 % (0-1); LYMPHOCYTES ABSOLUTE AUTO 0.16 K/mm3 (0.84-5.20); LYMPHOCYTES PERCENT AUTO 3 % (21-46); MONOCYTES ABSOLUTE AUTO 0.89 K/mm3 (0.16-1.47); MONOCYTES PERCENT AUTO 18 % (4-13); Mean Corpuscular HGB 30.8 pg (26.0-34.0); Mean Corpuscular HGB Conc 32.6 g/dL (31.5-36.5); Mean Corpuscular Volume 95 fL (80-100); NEUTROPHILS ABSOLUTE AUTO 3.84 K/mm3 (1.96-9.15); NEUTROPHILS PERCENT AUTO 75 % (41-73); NRBC ABSOLUTE 0.02 K/mm3 (0.00-0.02); NRBC Auto 0.4 /100 WBC (0.0-0.2); RDW Coefficient Variation 16.5 % (11.7-14.2); RDW Standard Deviation 55.9 fL (35.1-46.3); Red Blood Cell Count 2.53 M/mm3 (3.80-5.20)
[2019-02-18 03:30] LABS: Platelet Count 37 K/mm3 (150-400)
[2019-02-18 03:40] LABS: Anion Gap 6 mmol/L (6-16); Blood Urea Nitrogen 32 mg/dL (8-24); Bun/Creatinine Ratio 72.4 (12.0-20.0); CO2, Blood 29 mmol/L (21-32); Chloride, Blood 104 mmol/L (98-108); Creatinine, Blood 0.44 mg/dL (0.40-1.00); Glomerular Filtration Rate >60 (60-); Glucose, Blood 121 mg/dL (70-99); Magnesium, Blood 1.5 mg/dL (1.6-2.4); Phosphorus, Blood 3.4 mg/dL (2.5-4.9); Potassium, Blood 3.9 mmol/L (3.5-5.5); Sodium, Blood 139 mmol/L (136-145)
--- NOTE | 2019-02-18 06:03 | NUR ---
SHIFT SUMMARY NO ACUTE CHANGES OVERNIGHT. PT HAD TROUBLE SLEEPING OVERNIGHT AND WOKE UP ACHING ALL OVER, 1 TAB OF NORCO GIVEN. PT COMPLAINS OF DOBHOB WELL. TUBE FEEDING REMAINS AT GOAL 55ML/HR, HEPARIN RATE WAS INCREASED PER PHARMACY TO 13 UNITS/KG/HR. PT HAS NO OTHER COMPLAINTS AT THIS TIME. BED LOW AND LOCKED, CALL LIGHT WITHIN REACH.
--- NOTE | 2019-02-18 07:54 | NUR ---
Recieved report from Chevy BERNARD. She is sleeping when entering room. She has her mediport accessed and is infusing Heparin at 13 units/kg/hr. She has escamilla draining to gravity orange colored urine. She also has rectal tube with minimal output. She has Dobhoff tube in p[lace and is infuaing Pivot 1.5 at 55ml/hr with 30ml water flushes q4. She had been tolerating her liquids and will try to increase today as she could possibly have dobhoff out. Dressing to BRENDON C/D/I and will change this afternoon.
--- NOTE | 2019-02-18 10:00 | NUR ---
Patient tried a little breakfast and was still too full from TF. PT was in ICU and we got up to chair with lift and she would work with her. She was very wet and changed bedding and gown. PT got up to sitting position. She continues to stay up in chair. Ex at beside. VSS See EMR. She remains on RA and sats mid 90%'s
--- NOTE | 2019-02-18 12:00 | NUR ---
Patient remains in bed TF reduced to 35ml/hr to help with PO intake. No significant changes with patient. She remains up in chair and is still really tired from PT workout. Resting currently. Denies any pain currently.
--- NOTE | 2019-02-18 15:30 | NUR ---
Got patient back to bed per request. Her rectal tube and escamilla have both leaked and gave bath and changed linen.. PTT drawn. VSS. She remains on RA and sats mid 90%'s. She is in good spirits and ex- has just left. TYurned TF rate to 35ml/hr per dietary to help increase apetite.
--- NOTE | 2019-02-18 18:37 | NUR ---
Patient has been overly tired since PT today and has been resting most of day. Her appetite decreased and so has TF so that might increase her apetite. RA and sats mid 90%. Awakens easily with care. Heparin just reduced to 12 untit/hr.
--- NOTE | 2019-02-18 21:40 | NUR ---
ASSUMED CARE RECIEVED REPORT FROM RAVINDRA. PT AWAKE, ALERT & ORIENTED X 4. HEPARIN INFUSING 12UNITS/KG/HR. [facility] SITE WNL. PIVOT 1.5 INFUSING THROUGH DOBHOF AT 30ML/HR. BED LOW AND LOCKED, CALL LIGHT WITHIN REACH.
--- NOTE | 2019-02-18 23:07 | NUR ---
UPDATE PT HAD MASSIVE DIARRHEAL STOOL THAT SLIPPED PAST FLEXISEAL. PT WAS VOIDING AROUND DAVIS CATHETER WELL. BOTH REMOVED ~2099. ATTENDS IN PLACE. PT WAS FEELING A BURNING SENSATION, ATTRIBUTED TO THE SENSE OF URINATING, AND ACHED DOWN IN HER PERINEUM AREA. WHEN I CHECKED I NOTICED THE STOOL AND URINE. PT IS NOW ALL CLEANED UP AROUND 2129 AND REPORTS FEELING MUCH BETTER. SHE CAN SENSE WHEN SHES URINATING, SO THE PLAN IS TO CHANGE HER ATTENDS NEEDED.
[2019-02-19 03:40] LABS: BASOPHILS ABSOLUTE AUTO 0.01 K/mm3 (0.00-0.23); BASOPHILS PERCENT AUTO 0 % (0-2); EOSINOPHILS PERCENT AUTO 0 % (0-6); Hematocrit 22.8 % (33.0-51.0); Hemoglobin 7.4 g/dL (11.5-16.0); IMMATURE GRAN ABSOLUTE AUTO 0.12 K/mm3 (0.00-0.10); IMMATURE GRAN PERCENT AUTO 2 % (0-1); LYMPHOCYTES PERCENT AUTO 2 % (21-46); MONOCYTES ABSOLUTE AUTO 1.03 K/mm3 (0.16-1.47); MONOCYTES PERCENT AUTO 20 % (4-13); Mean Corpuscular HGB 31.1 pg (26.0-34.0); Mean Corpuscular HGB Conc 32.5 g/dL (31.5-36.5); Mean Corpuscular Volume 96 fL (80-100); Mean Platelet Volume 11.9 fL (9.1-12.4); NEUTROPHILS ABSOLUTE AUTO 3.97 K/mm3 (1.96-9.15); NEUTROPHILS PERCENT AUTO 76 % (41-73); RDW Coefficient Variation 16.6 % (11.7-14.2); RDW Standard Deviation 56.4 fL (35.1-46.3); Red Blood Cell Count 2.38 M/mm3 (3.80-5.20); White Blood Cell Count 5.23 K/mm3 (4.00-11.30)
[2019-02-19 03:46] LABS: Platelet Count 41 K/mm3 (150-400)
[2019-02-19 03:58] LABS: Albumin, Blood 1.5 g/dL (3.4-5.0); Anion Gap 4 mmol/L (6-16); Blood Urea Nitrogen 26 mg/dL (8-24); Bun/Creatinine Ratio 63.1 (12.0-20.0); CO2, Blood 30 mmol/L (21-32); Chloride, Blood 103 mmol/L (98-108); Creatinine, Blood 0.41 mg/dL (0.40-1.00); Glomerular Filtration Rate >60 (60-); Glucose, Blood 107 mg/dL (70-99); Magnesium, Blood 1.4 mg/dL (1.6-2.4); Phosphorus, Blood 3.4 mg/dL (2.5-4.9); Sodium, Blood 137 mmol/L (136-145)
--- NOTE | 2019-02-19 05:45 | NUR ---
SHIFT SUMMARY PT SLEPT THROUGHOUT NIGHT. ONLY ACUTE CHANGES WAS THE REMOVAL OF DAVIS AND FLEXISEAL. SEE PREVIOUS NOTES. PT AFEBRILE ALL NIGHT. SINUS TACH, STABLE BP, SEE VS. PT FEELS A LOT BETTER THIS MORNING, COMPLAINS OF NO PAIN. PIVOT 1.5 AT 35 ML/HR. HEPARIN INFUSING AT 12.8ML/HR (PHARM CHANGED RATE BASED ON SLIGHTLY ELEVATED PTT - SEE LABS). PT REMAINS ALERT AND ORIENTED X 4. BED LOW AND LOCKED, CALL LIGHT WITHIN REACH.
--- NOTE | 2019-02-19 08:00 | NUR ---
DR PACE IN ROOM. OKAY STOP PUMP. PT EATING. KEEP DOBHOFF IN UNTIL SHOWS EATING THEN MAY REMOVE. FLUSHED AND STOPPED.
--- NOTE | 2019-02-19 08:30 | NUR ---
PT PLEASANT COOP A/O. TALKING . DENIES PAIN. HAS DOBHOFF. DR PACE IN ROOM. HE OKAYED TURNING OFF IF WILLING TO EAT. OKAY TO D.C IF EATING WELL. H/R IRREG, NO MURMER NOTED. TELE PER STRIP. LUNGS CLEAR, RESP EASY, UNLABORED. ON R.A. BT X4 LAST BM THIS AM. LOOSE. VOIDS ATTENDS. INCONT. RECTAL TUBE AND DAVIS CATH REMOVED THIS AM JUST BEFORE SHIFT CHANGE. BED IN LOW POSITION, CALL LITE IN REACH, CALLS APPROP
--- NOTE | 2019-02-19 09:50 | NUR ---
PHARMACY CALLED. ORDERS TO ADJUST HEPARIN DRIP TO 12U, 20.2 ML/HR. NO BOLUS ADJUSTED AT PUMP.
--- NOTE | 2019-02-19 19:24 | NUR ---
PT DOING BETTER TODAY. STATES TUMMY NOT IRRITABLE SINCE T/FEED OFF. DOBHOFF STILL IN , BUT EXPECT OUT SHORTLY. PT IS EATING/DRINKING SOME. DR PACE OKAYED TURN OFF AND REMMOVE IF EATING DRINKING WELL TODAY. PASSED ORDERS TO STEPHANIE BERNARD . PT JUST CALLED ME TO CHECK MOUTH IS SORES. SOME BLOOD NOTED. PASSED TO STEPHANIE BERNARD. BED IN LOW POSITION CALL YESY GRIFFITHS, CALLS APPROP. SON IN ROOM AT THIS TIME.
--- NOTE | 2019-02-19 19:45 | NUR ---
[place] of Care: Care assumed at 1900hr. Patient alert and oriented x4, sitting upright in bed watching TV. Denies pain, discomfort, SOB, or dyspnea at this time. VSS, O2-96% on RA. Medi-port accessed to rt upper chest, infusing heparin gtt without difficulty. Heparin gtt at 12u/kg/hr, dosed at 84kg, dose at dose weight confirmed with EMAR and day shift RN. Patient incontinent of bowel and urine but able to tell staff when she needs changed. Several bloody sores noted to tongue/mouth, oral care performed by patient and this RN. -Odilia tube in place to rt nare. Dr. Bolivar gave day shift RN permission to d/c -Odilia tube if patient is eating. Discussed this possibility with patient. Decision made to leave tube in place at this time as patient stuggels to eat at time r/t pain from mouth sores. Plan to contact hospitalist and request order for "magic mouth-wash" to help with pain. Tube off/disconnected at shift change but restarted per orders by this RN. Call light in reach, makes needs known. Will continue to monitor for pain, safety, comfort.
[2019-02-20 01:21] LABS: International Normalized Ratio 1.15
[2019-02-20 04:12] LABS: BASOPHILS PERCENT AUTO 0 % (0-2); EOSINOPHILS ABSOLUTE AUTO 0.01 K/mm3 (0.00-0.68); EOSINOPHILS PERCENT AUTO 0 % (0-6); Hematocrit 21.5 % (33.0-51.0); IMMATURE GRAN ABSOLUTE AUTO 0.11 K/mm3 (0.00-0.10); IMMATURE GRAN PERCENT AUTO 2 % (0-1); LYMPHOCYTES ABSOLUTE AUTO 0.18 K/mm3 (0.84-5.20); LYMPHOCYTES PERCENT AUTO 3 % (21-46); MONOCYTES ABSOLUTE AUTO 1.04 K/mm3 (0.16-1.47); MONOCYTES PERCENT AUTO 18 % (4-13); Mean Corpuscular HGB 31.3 pg (26.0-34.0); Mean Corpuscular HGB Conc 32.6 g/dL (31.5-36.5); Mean Corpuscular Volume 96 fL (80-100); Mean Platelet Volume 11.7 fL (9.1-12.4); NEUTROPHILS ABSOLUTE AUTO 4.45 K/mm3 (1.96-9.15); NEUTROPHILS PERCENT AUTO 77 % (41-73); NRBC ABSOLUTE 0.03 K/mm3 (0.00-0.02); NRBC Auto 0.5 /100 WBC (0.0-0.2); RDW Coefficient Variation 16.8 % (11.7-14.2); RDW Standard Deviation 56.1 fL (35.1-46.3); Red Blood Cell Count 2.24 M/mm3 (3.80-5.20); White Blood Cell Count 5.79 K/mm3 (4.00-11.30)
[2019-02-20 04:23] LABS: Platelet Count 47 K/mm3 (150-400)
[2019-02-20 04:25] LABS: Anion Gap 5 mmol/L (6-16); Blood Urea Nitrogen 21 mg/dL (8-24); CO2, Blood 29 mmol/L (21-32); Calcium, Blood 8.1 mg/dL (8.5-10.1); Chloride, Blood 104 mmol/L (98-108); Glomerular Filtration Rate >60 (60-); Glucose, Blood 113 mg/dL (70-99); Magnesium, Blood 1.7 mg/dL (1.6-2.4); Potassium, Blood 3.8 mmol/L (3.5-5.5); Sodium, Blood 138 mmol/L (136-145)
--- NOTE | 2019-02-20 09:30 | NUR ---
Recieved report from Dany BERNARD, Patient was sleeping and allowed her to sleep . She awaoke at 0900 and c/o incontinent of brown liquid stool. Gave bath, creamed up patient, changes lined and dressing to BRENDON that skin intact with dry wounds. She is on RA and sats upper 90%'s. She continues on Pivot 1.5 at 35ml/hr with 30ml q4 water flushes. She has mediprot to RU chest and is infusing Heparin at 11.9 units/kg/hr.
--- NOTE | 2019-02-20 11:30 | NUR ---
Patient called to be cleaned up, she states she is really tired. This is her third liquid stool and she requested to have it turned off and she will increase her apetite. Her groin area is severly red and sore from all the diarrhea and urine.
--- NOTE | 2019-02-20 13:48 | NUR ---
Patient resting, no changes to heparin. She remains on RA and sats in the upper 90%'s.
--- NOTE | 2019-02-20 17:58 | NUR ---
Patient has been changed again and preparing to take up stair. There has been no real changes with gtt's or VS. Icalled Dr Bolivar and we pulled Dobhoff and stopped TF and CBG Q6 prior to going to med floor. Gave report to Med RN and she will be going to [facility]. Transfered via ICU bed and all meds sent. All her belonging went with patient. 1 unit PRBC transfused and just finished for Hgb 7.0.
--- NOTE | 2019-02-20 18:29 | NUR ---
ICU TRANSFER- PT ARRIVED TO ROOM 313 VIA BED FROM ICU, PT ALERT AND ORIENTED. PT DENIES ANY PAIN OR OTHER COMPLAINTS AT THIS TIME. PT A 4 PERSON SLIDE INTO BED. MEDIPORT TO RCW NOTED WITH HEPARIN GTT AND TKO NS RUNNING, HEPARIN GTT VERIFIED WITH ORDER. PT ORIENTED TO ROOM AND CALL SYSTEM, CALL LIGHT IN REACH.
--- NOTE | 2019-02-20 18:32 | NUR ---
HEPARIN GTT DOSING WEIGHT NOTED TO BE 84KG, PT HAS A WEIGHT OF 121 KG, VERIFIED WITH PHARMACIST THAT THIS WAS OK, PER PHARMACIST PANTERA IT IS OK.
--- NOTE | 2019-02-21 05:57 | NUR ---
SHIFT SUMMARY- NO ACUTE CHANGES OVERNIGHT. PT. RECEIVED A NORCO BEFORE BED. RESTED COMFORTABLY T/O THE SHIFT. CHANGED BRIEF/PAD AND REPOSITIONED, TOLERATED WELL. HEPARIN GTT INFUSING THROUGH THE MEDIPORT TO THE RT CW. NO APPARENT DISTRESS NOTED, CALL LIGHT WITHIN REACH, AND SIDE RAILS UP X2.
[2019-02-21 06:32] LABS: Hematocrit 23.6 % (33.0-51.0); Hemoglobin 7.7 g/dL (11.5-16.0)
[2019-02-21 08:07] LABS: BASOPHILS ABSOLUTE AUTO 0.02 K/mm3 (0.00-0.23); BASOPHILS PERCENT AUTO 0 % (0-2); EOSINOPHILS ABSOLUTE AUTO 0.02 K/mm3 (0.00-0.68); EOSINOPHILS PERCENT AUTO 0 % (0-6); Hematocrit 23.3 % (33.0-51.0); Hemoglobin 7.6 g/dL (11.5-16.0); IMMATURE GRAN ABSOLUTE AUTO 0.11 K/mm3 (0.00-0.10); IMMATURE GRAN PERCENT AUTO 2 % (0-1); LYMPHOCYTES ABSOLUTE AUTO 0.24 K/mm3 (0.84-5.20); LYMPHOCYTES PERCENT AUTO 5 % (21-46); MONOCYTES ABSOLUTE AUTO 1.14 K/mm3 (0.16-1.47); MONOCYTES PERCENT AUTO 22 % (4-13); Mean Corpuscular HGB 30.3 pg (26.0-34.0); Mean Corpuscular HGB Conc 32.6 g/dL (31.5-36.5); Mean Platelet Volume 11.7 fL (9.1-12.4); NEUTROPHILS ABSOLUTE AUTO 3.62 K/mm3 (1.96-9.15); NEUTROPHILS PERCENT AUTO 70 % (41-73); RDW Coefficient Variation 17.2 % (11.7-14.2); RDW Standard Deviation 55.3 fL (35.1-46.3); Red Blood Cell Count 2.51 M/mm3 (3.80-5.20); White Blood Cell Count 5.15 K/mm3 (4.00-11.30)
[2019-02-21 08:13] LABS: Mean Corpuscular Volume 93 fL (80-100)
[2019-02-21 08:14] LABS: Platelet Count 44 K/mm3 (150-400)
--- NOTE | 2019-02-21 16:32 | NUR ---
Clinical Visit: Pt is alert, oriented. She is sitting up in bed. She denies pain at this time, but reports severe anxiety and severe depression. She is tearful, sad. She states "I don't know what to do." Reviewed current plan. Notes indicate that she is going to SNF tomorrow and told her. She doesn't remember anyone telling her that she was going, and it surprises her. She does want to go to rehab and get stronger. Discussed other options with her. One option is hospice care. She states that she is not ready for that yet, although she has made the decision not to have anymore chemo treatments. She has reviewed advance care planning with her family. She desires to remain a full code. Her family knows that she wants to be a full code, however, they also know that she only wants to be on vent or resusitation for 2 weeks, then quit and allow . She plans on returning home after rehab. Pt reports that she is feeling dispair." She is having troublesome thoughts through her mind, constantly. She states she is very depressed and does not know what to do about it. She would be willing to take some medication to support her mood. She is also interested in taking antianxiety medications. "Anything." She is devastated about her legs not working, she states that "being changed is so insulting." Validated her feelings, listened therapeutically. Updated nursing for lorazepam administration. She does have this on her eMAR. Recommend ordering antidepressant. Pt reports that she is sleeping ok, but staff wakes her up frequently for care. Denies headache, ringing in the ears. She denies shortness of breath right now, but states that this has been a problem earlier. Will follow up with hospitalist.
--- NOTE | 2019-02-21 16:37 | NUR ---
SPOKE WITH DR RIVERA REGARDING HEPARIN GTT PER DR WAGNER. DR RIVERA REPORTS HE ORIGINALLY WANTED TO WAIT UNTIL PT PLATELET WAS ABOVE 50 TO STOP, PT PLATELET AT 44 THIS AM, HE REPORTS ITS OK TO GO AHEAD AND STOP HEPARIN GTT AND START ON LOVENOX, XARELTO, OR ELIIQUIS AT STANDARD FULL DOSING. DR WAGNER NOTIFIED. DR RIVERA ALSO REPORTED PT SPOUSE HAS CALLED HIM MULTIPLE TIMES REGARDING THE PT DOING WORSE, SPOUSE CONCERNED THAT PT WAS REQUIRING ANOTHER BLOOD TRANSFUSION TODAY, I EDUCATED HIM THAT HER HGB DID IMPROVE AFTER UNIT YESTERDAY BUT DR RIVERA WANTED 1 MORE UNIT TODAY FOR HGB OF 7.7. HE IS ALSO WANTING PT UP AMBULATING BEFORE DISCHARGE I TOLD HIM THAT THAT IS WHY SHE WOULD GO TO REHAB TO REGAIN HER STRENGTH, PT HAS BEEN A LIFT HERE AT THE HOSPITAL AND IT IS UNREALISTIC GOALS TO HAVE HER UP WALKING.
--- NOTE | 2019-02-21 18:17 | NUR ---
[facility] note: Aliza was alone in room and wanted to talk. She expressed distress that she could not walk anymore, but admits that PT is "too much." She told me that she lives alone, but her ex- lives in a trailer on her property. This is concerning. She admitted to me she is alone more than she'd like. Aliza says her ex-spouse "tries his best" but he is often demanding. He does not want her to quit "trying" and insists she get stronger. "He doesn't understand how hard this is." She was very open and vulnerable with me. Her son, Yareli is her only child from a previous relationship. He has a learning disability and is on SSD. Her two grand-children are her only source of norman, and she lights up when she tells me about them. She admits she feels her body getting weaker and also says she doubts she will be able to do the work rehab will require. " I'm tired of fighting." She tells me she beleives in [place] and is not afraid of . She has been trying to fight for her son. "I'm all he's got." She asked me what would happen if she could not get better through rehab. I gently explained that hospice was an option. She liked the idea of being home with everything she needed to be comfortbale and supported. From what she has told me about her ex-, it seems doubtful that he will be able to properly care for her. I will certainly be too much for her son emotionally. Aliza is very weak, a bit forgetful, and she may not recall anything we spoke about. She states that she is willing to give rehab "a try." It is important to her that she "tries everything." She admits it was a relief when her oncologist said "no more chemo." I tried to empower her as she admits she has been controlled by other's expectations her whole life. Aliza says it will be "really hard for me to start standing up for myself." I provided affirmation of her strength and self-wisdom. Told her it was her body and she gets to "be the boss when it comes to what happens now." She liked this idea, but still said "it's hard for me to do." It was interesting to speak to her alone. In previous hospitalizations, her ex-spouse would speak on behalf of Aliza most of the time. This was the first time we spoke one-on-one and she appeared to appreciate gentle licensed mental health counselor and affirmation. We concluded visit with a prayer for a clear path. She expects to be discharged to SNF tomorrow.
--- NOTE | 2019-02-21 19:42 | NUR ---
SHIFT SUMMARY- PT A/O X3. LS CLEAR, ON RA. HRR. PT BLE AND BUE EDEMA. PT WITH POOR PO INTAKE, PT HAS SORES ON THE INSIDE OF HER MOUTH, PT DID ENJOY STRAWBERRY BANANA MILKSHAKE THIS EVENING. PT DID REPORT THIS EVENING GAS PAINS AND UPSET STOMACH, REPORTS DR RIVERA GAVE PT SOMETHING IN THE PAST THAT HELPED WITH THIS AND HE WILL LOOK TO SEE WHAT IT WAS. PT WITH BILATERAL DVT'S, PER DR RIVERA PT CAN STOP HEPARIN GTT AND START ON A LOVENOX, XARELTO OR ELIQUIS. 1 UNIT PRBC GIVEN TODAY. MEDIPORT NEEDLE CHANGED. PT VERY WEAK BUT CAN ASSIST WITH REPOSITIONG AND CHANGING IN BED, PT POSSIBLE D/C TO SNF IN THE NEXT FEW DAYS. PT TEARFUL AT TIMES, PALLIATIVE CARE AND MERCHANDISE ADJUSTMENT CLERK IN TO SEE PT. NO OTHER ACUTE CHANGES THIS SHIFT.
[2019-02-22 06:58] LABS: BASOPHILS ABSOLUTE AUTO 0.01 K/mm3 (0.00-0.23); BASOPHILS PERCENT AUTO 0 % (0-2); EOSINOPHILS ABSOLUTE AUTO 0.03 K/mm3 (0.00-0.68); EOSINOPHILS PERCENT AUTO 1 % (0-6); Hematocrit 24.9 % (33.0-51.0); Hemoglobin 8.3 g/dL (11.5-16.0); IMMATURE GRAN ABSOLUTE AUTO 0.11 K/mm3 (0.00-0.10); IMMATURE GRAN PERCENT AUTO 2 % (0-1); LYMPHOCYTES ABSOLUTE AUTO 0.19 K/mm3 (0.84-5.20); LYMPHOCYTES PERCENT AUTO 3 % (21-46); MONOCYTES ABSOLUTE AUTO 1.09 K/mm3 (0.16-1.47); MONOCYTES PERCENT AUTO 18 % (4-13); Mean Corpuscular HGB 30.6 pg (26.0-34.0); Mean Corpuscular HGB Conc 33.3 g/dL (31.5-36.5); Mean Corpuscular Volume 92 fL (80-100); Mean Platelet Volume 10.5 fL (9.1-12.4); NEUTROPHILS ABSOLUTE AUTO 4.75 K/mm3 (1.96-9.15); NEUTROPHILS PERCENT AUTO 77 % (41-73); NRBC ABSOLUTE 0.03 K/mm3 (0.00-0.02); NRBC Auto 0.5 /100 WBC (0.0-0.2); RDW Coefficient Variation 18.7 % (11.7-14.2); RDW Standard Deviation 58.6 fL (35.1-46.3); Red Blood Cell Count 2.71 M/mm3 (3.80-5.20); White Blood Cell Count 6.18 K/mm3 (4.00-11.30)
[2019-02-22 07:13] LABS: Platelet Count 39 K/mm3 (150-400)
--- NOTE | 2019-02-22 07:37 | NUR ---
NOTIFIED PLATLETS 39. STS WILL CHECK.
--- NOTE | 2019-02-22 07:45 | NUR ---
SHIFT SUMMARY PT HAD UNREMARKABLE SHIFT. PT CONTINUES TO FEEL WEAK. PT HAD SOME INCREASED PAIN AND TX PER EMAR. PT SLEPT VERY WELL DURING SHIFT. PT EAGER TO GET STRONGER AND BE ABLE TO WALK AGAIN. CALL LIGHT IN REACH
--- NOTE | 2019-02-22 11:53 | NUR ---
[facility] ON HOLD FOR EXTENDED PERIOD OF TIME. LEFT NUMBER Nubia/RAVINDRA.
--- NOTE | 2019-02-22 12:28 | NUR ---
[facility]. ANSWER ALL QUESTIONS. PATIENT ALREADY AT [facility]
[2019-02-22] MEDS ORDERED: Artificial Tea1 EACH BOTHEYES (13:10)
[2019-02-22] MEDS ORDERED: CEPACOL SORE T1 EACH MM (13:11)
[2019-02-22] MEDS ORDERED: Donnatal E16.2 MG/5 PO (13:17)
[2019-02-22] MEDS ORDERED: LEVSOD112 PO (13:18)
[2019-02-22] MEDS ORDERED: Norco 5-325 Ta1 EACH PO (13:18)
[2019-02-22] MEDS ORDERED: Vsl#3 Capsule1 EACH PO (13:18)
[2019-02-22] MEDS ORDERED: Xylocaine5 M1 PO (13:20)
[2019-02-22] MEDS ORDERED: PRED5EL PO (13:21)
[2019-02-22] MEDS ORDERED: Magnesium500 M1 PO (13:21)
[2019-02-22] MEDS ORDERED: XARELTO20 MG PO (13:22)
[2019-02-22] MEDS ORDERED: SUCR1 PO (13:24)
[2019-02-22] MEDS ORDERED: LORA.5 PO (13:27)
== END 2019-02-22 11:44 | DRG 871 ==
LOC: ER 18:40 → ICUW 22:07 → ICUE 22:07 → MEDS 02-20 18:01 → ENPENDDIS 02-22 10:21 → MEDS 02-22 11:44
PROVIDERS: Emergency Medicine; Internal Medicine; Internal Medicine Critical Care Medicine; Internal Medicine Hematology & Oncology; Internal Medicine Pulmonary Disease; ADMIT Hospitalist
PROC: 30233N1 Transfusion of Nonautologous Red Blood Cells into Peripheral Vein, Percutaneous Approach (ICD-10-PCS; principal; 2019-02-06)
PROC: 30233R1 Transfusion of Nonautologous Platelets into Peripheral Vein, Percutaneous Approach (ICD-10-PCS; 2019-02-06)
PROC: 3E033XZ Introduction of Vasopressor into Peripheral Vein, Percutaneous Approach (ICD-10-PCS; 2019-02-06)
DX: A41.51 Sepsis due to Escherichia coli [E. coli] (principal); G92 Toxic encephalopathy; R65.21 Severe sepsis with septic shock; I21.A1 Myocardial infarction type 2; K76.6 Portal hypertension; C81.40 Lymphocyte-rich Hodgkin lymphoma, unspecified site; E87.1 Hypo-osmolality and hyponatremia; N17.9 Acute kidney failure, unspecified; E87.2 Acidosis; N39.0 Urinary tract infection, site not specified; I82.413 Acute embolism and thrombosis of femoral vein, bilateral; I82.433 Acute embolism and thrombosis of popliteal vein, bilateral; K74.3 Primary biliary cirrhosis; I10 Essential (primary) hypertension; D70.9 Neutropenia, unspecified; Z92.21 Personal history of antineoplastic chemotherapy; Z92.3 Personal history of irradiation; E03.9 Hypothyroidism, unspecified; I95.9 Hypotension, unspecified; D64.81 Anemia due to antineoplastic chemotherapy; E83.42 Hypomagnesemia; K13.79 Other lesions of oral mucosa
CPT/HCPCS: 36415; 36430; 51702; 70450; 71045; 80048; 80053; 80069; 80076; 80202; 81001; 82140; 82272; 82803; 82947; 83605; 83690; 83735; 83880; 84100; 84145; 84484; 85007; 85014; 85018; 85025; 85027; 85045; 85049; 85060; 85610; 85730; 86022; 86850; 86900; 86901; 86923; 87040; 87077; 87081; 87086; 87186; 87486; 87581; 87633; 87798; 92526; 92610; 93005; 93010; 93306; 93971; 94640; 94667; 94760; 96361-59; 96365-59; 96375-59; 97110; 97163; 97164; 97166; 97530; 99285-25; A9270-GY; C1751; C9113; J0696; J0713; J0744; J1447; J1642; J1644; J1720; J1885; J1940; J1956; J2060; J2185; J3010; J3370; J3475; J7030; J7040; J7050; J7060; P9016; P9035; P9046; P9053

== ENCOUNTER 2019-03-01 14:39 | Emergency (ER) | payer OTHER ==
[~2019-03-01] VITALS: Ht 175.3 cm; Wt 113.8 kg
[~2019-03-01 14:39] MED LIST changes: +Artificial Tea1 EACH BOTHEYES; +CEPACOL SORE T1 EACH MM; +Donnatal E16.2 MG/5 PO; +LEVSOD112 PO; +LORA.5 PO; +Magnesium500 M1 PO; +Norco 5-325 Ta1 EACH PO; +PRED5EL PO; +Vsl#3 Capsule1 EACH PO; +XARELTO20 MG PO; +Xylocaine5 M1 PO
[2019-03-01] MEDS ORDERED: Artificial Tea1 EACH BOTHEYES (16:04)
[2019-03-01] MEDS ORDERED: L-Lysine500 M1 PO (16:13)
[2019-03-01] MEDS ORDERED: DOCU100 PO (16:14)
[2019-03-01] MEDS ORDERED: LIDOCAINE PAIN1 EACH TOP (16:18)
[2019-03-01] MEDS ORDERED: SIME80CH PO (16:23)
== END 2019-03-01 19:29 | disposition home or self-care (01) ==
LOC: ER 14:39
DX: D64.9 Anemia, unspecified (principal); Z79.899 Other long term (current) drug therapy; Z88.6 Allergy status to analgesic agent; Z88.1 Allergy status to other antibiotic agents; Z88.8 Allergy status to other drugs, medicaments and biological substances; Z91.038 Other insect allergy status
CPT/HCPCS: 36430; 86850; 86900; 86901; 86923; 99283-25; J1642; J7030; P9016

== ENCOUNTER → 2019-04-19 | Outpatient (CLI) | payer OTHER ==
[~2019-04-19] MED LIST changes: +DOCU100 PO; +L-Lysine500 M1 PO; +LIDOCAINE PAIN1 EACH TOP; +SIME80CH PO
[2019-04-19 15:36] LABS: Bilirubin, Urine Neg (Neg); Blood, Urine 4+ (Neg); Glucose Qualitative, Urine Neg (Neg); Ketones, Urine 1+ (Neg); Leukocyte Esterase, Urine 3+ (Neg); Nitrite, Urine Pos (Neg); Protein, Urine 2+ (Neg); Urobilinogen, Urine 1+ (Normal)
[2019-04-19 15:54] LABS: Appearance, Urine Cloudy (Clear); Color, Urine Yellow (P-Yellow)
[2019-04-19 15:55] LABS: Bacteria Many /hpf; Red Blood Cells, Urine 25-50 /hpf (0-2); Squamous Epithelial Cells Not Seen /hpf (Few); White Blood Cells, Urine TNTC /hpf (0-5)
[2019-04-19 15:56] LABS: Amorphous Light (0-Heavy)
== END | disposition home or self-care (01) ==
LOC: LAB UVN 15:28 → EDSTATUS 15:36
DX: R30.0 Dysuria (principal)
CPT/HCPCS: 81001; 87077; 87086; 87186

== ENCOUNTER 2021-09-20 13:46 | Inpatient (IN) | payer OTHER ==
[~2021-09-20] VITALS: Ht 172.7 cm; Wt 104.3 kg
[~2021-09-20 13:46] MED LIST changes: +ALDACTONE100 MG PO; +Actigall300 MG PO; -Aldactone100 MG PO; +CEFPODOXIME PR100 MG PO; +CYCL0.05OP BOTHEYES; +DULO30 PO; +FUROSEMIDE40 MG PO; +GABA300 PO; +GVOKE HYPO1 MG/0.21 SC; +Hydroxyzine HCl50 MG PO; +KLOR-CON 1010 MEQ PO; +NEURONTIN300 MG PO; +ZOLP5 PO
[2021-09-20 14:18] LABS: BASOPHILS ABSOLUTE AUTO 0.03 K/mm3 (0.00-0.23); BASOPHILS PERCENT AUTO 0 % (0-2); EOSINOPHILS ABSOLUTE AUTO 0.07 K/mm3 (0.00-0.68); EOSINOPHILS PERCENT AUTO 1 % (0-6); Hematocrit 45.8 % (33.0-51.0); Hemoglobin 15.8 g/dL (11.5-16.0); IMMATURE GRAN ABSOLUTE AUTO 0.02 K/mm3 (0.00-0.10); IMMATURE GRAN PERCENT AUTO 0 % (0-1); LYMPHOCYTES ABSOLUTE AUTO 0.74 K/mm3 (0.84-5.20); LYMPHOCYTES PERCENT AUTO 10 % (21-46); MONOCYTES ABSOLUTE AUTO 1.14 K/mm3 (0.16-1.47); MONOCYTES PERCENT AUTO 16 % (4-13); Mean Corpuscular HGB 33.3 pg (26.0-34.0); Mean Corpuscular HGB Conc 34.5 g/dL (31.5-36.5); Mean Corpuscular Volume 96 fL (80-100); Mean Platelet Volume 10.7 fL (9.1-12.4); NEUTROPHILS ABSOLUTE AUTO 5.19 K/mm3 (1.96-9.15); NEUTROPHILS PERCENT AUTO 72 % (41-73); Platelet Count 146 K/mm3 (150-400); RDW Coefficient Variation 15.5 % (11.7-14.2); RDW Standard Deviation 55.8 fL (35.1-46.3); Red Blood Cell Count 4.75 M/mm3 (3.80-5.20); White Blood Cell Count 7.19 K/mm3 (4.00-11.30)
[2021-09-20 14:43] LABS: Source, Urine Straight Cath
[2021-09-20 14:45] LABS: Bilirubin, Urine Neg (Neg); Blood, Urine 1+ (Neg); Glucose Qualitative, Urine Neg (Neg); Ketones, Urine Neg (Neg); Leukocyte Esterase, Urine Neg (Neg); Nitrite, Urine Neg (Neg); Protein, Urine Neg (Neg); Urobilinogen, Urine NORM (Normal)
[2021-09-20 14:46] LABS: Ethanol (Alcohol), Blood, Med <3 mg/dL; Free Thyroxine 1.54 ng/dL (0.70-1.60); Triiodothyronine, Free 2.12 pg/mL (2.18-3.98)
[2021-09-20 14:50] LABS: Base Excess Venous -0.2 mmol/L; Bicarbonate Venous 24.6 mmol/L (24.0-30.0); PCO2 Venous 35.3 mmHg (38-42); PO2 Venous 137 mmHg (38-42); pH Blood Venous 7.44 (7.34-7.37)
[2021-09-20 14:52] LABS: Appearance, Urine Hazy (Clear); Color, Urine Yellow (P-Yellow); White Blood Cells, Urine 0-2 /hpf (0-5)
[2021-09-20 14:53] LABS: Bacteria Rare /hpf; Squamous Epithelial Cells Rare /hpf (Few)
[2021-09-20 14:58] LABS: U Amphetamine Screen Not Detected; U Barbituate Screen Not Detected; U Benzodiazapine Screen Not Detected; U Buprenorphine Screen Not Detected; U Cannabinoids Screen Not Detected; U Cocaine Screen Not Detected; U Methadone Screen Not Detected; U Methamphetamine Screen Not Detected; U Opiates Screen DETECTED; U Oxycodone Screen Not Detected; U Phencyclidine Screen Not Detected; U Propoxyphene Screen Not Detected
[2021-09-20 15:20] LABS: Albumin, Blood 3.6 g/dL (3.4-5.0); Bun/Creatinine Ratio 17.6 (12.0-20.0); Creatinine, Blood 1.02 mg/dL (0.40-1.00); Globulin, Blood 3.6 g/dL (2.2-4.0); Potassium, Blood 4.2 mmol/L (3.5-5.5); Total Protein, Blood 7.2 g/dL (6.4-8.2)
[2021-09-20 15:46] LABS: Albumin, Blood 3.6 g/dL (3.4-5.0); Bilirubin, Direct 0.2 mg/dL (0.0-0.3); Bilirubin, Indirect 0.8 mg/dL (0.1-0.7); Globulin, Blood 3.6 g/dL (2.2-4.0); Total Protein, Blood 7.2 g/dL (6.4-8.2)
[2021-09-20] MEDS ORDERED: XARELTO20 MG PO (21:38)
[2021-09-20] MEDS ORDERED: ALDACTONE100 MG PO (21:38)
[2021-09-20] MEDS ORDERED: ZOLP10 PO (21:39)
[2021-09-21 05:15] LABS: BASOPHILS ABSOLUTE AUTO 0.04 K/mm3 (0.00-0.23); BASOPHILS PERCENT AUTO 1 % (0-2); EOSINOPHILS ABSOLUTE AUTO 0.22 K/mm3 (0.00-0.68); EOSINOPHILS PERCENT AUTO 4 % (0-6); Hematocrit 40.8 % (33.0-51.0); Hemoglobin 13.7 g/dL (11.5-16.0); IMMATURE GRAN ABSOLUTE AUTO 0.01 K/mm3 (0.00-0.10); IMMATURE GRAN PERCENT AUTO 0 % (0-1); LYMPHOCYTES ABSOLUTE AUTO 0.94 K/mm3 (0.84-5.20); LYMPHOCYTES PERCENT AUTO 18 % (21-46); MONOCYTES PERCENT AUTO 21 % (4-13); Mean Corpuscular HGB Conc 33.6 g/dL (31.5-36.5); Mean Corpuscular Volume 98 fL (80-100); Mean Platelet Volume 10.8 fL (9.1-12.4); NEUTROPHILS ABSOLUTE AUTO 2.94 K/mm3 (1.96-9.15); NEUTROPHILS PERCENT AUTO 56 % (41-73); Platelet Count 122 K/mm3 (150-400); RDW Coefficient Variation 15.8 % (11.7-14.2); RDW Standard Deviation 56.9 fL (35.1-46.3); Red Blood Cell Count 4.15 M/mm3 (3.80-5.20); White Blood Cell Count 5.25 K/mm3 (4.00-11.30)
[2021-09-21 05:43] LABS: Alanine Aminotransfer (ALT/SGP 32 U/L (12-78); Albumin, Blood 3.1 g/dL (3.4-5.0); Alk Phos 160 U/L (50-136); Anion Gap 9 mmol/L (6-16); Aspartate Aminotrans (AST/SGOT 41 U/L (12-37); Bilirubin, Total 1.2 mg/dL (0.1-1.0); Blood Urea Nitrogen 15 mg/dL (8-24); Bun/Creatinine Ratio 17.4 (12.0-20.0); CO2, Blood 22 mmol/L (21-32); Calcium, Blood 9.1 mg/dL (8.5-10.1); Chloride, Blood 113 mmol/L (98-108); Creatinine, Blood 0.86 mg/dL (0.40-1.00); Globulin, Blood 3.2 g/dL (2.2-4.0); Glomerular Filtration Rate >60 (60-); Glucose, Blood 108 mg/dL (70-99); Potassium, Blood 3.7 mmol/L (3.5-5.5); Sodium, Blood 144 mmol/L (136-145); Total Protein, Blood 6.3 g/dL (6.4-8.2)
--- NOTE | 2021-09-21 06:04 | NUR ---
Shift Summary Received patient lethargic and agitated. She came with increase [place] level. She is also on restraint for agitation and pulling lines out. She is AAOX2, breathing at room air. She slept most of the shift with intermitent sreaming. We will continue to monitor patient for any acute changes.
[2021-09-21] MEDS ORDERED: Amoxicillin500 MG PO (11:43)
[2021-09-21] MEDS ORDERED: Enulose10 GM/15 M PO (11:46)
[2021-09-21] MEDS ORDERED: ONDA4ODT MM (11:46)
[2021-09-21] MEDS ORDERED: VISBIOME 112.51 EACH PO (11:47)
--- NOTE | 2021-09-21 13:48 | NUR ---
DISCHARGE SUMMARY PT'S RESTRAINTS REMOVED THIS AM DUE TO HER BEING A/O X3 AND COOPERATIVE WITH CARE. PT'S MENTAL STATUS REMAINED STABLE. MEDICATIONS CHANGED AND PT DISCHARGED HOME WITH FORMER WHO IS ALSO HER CAREGIVER.
== END 2021-09-21 13:05 | disposition home or self-care (01) | DRG 871 ==
LOC: ER 13:46 → MEDS 17:34
PROVIDERS: Student in an Organized Health Care Education/Training Program; ADMIT Internal Medicine
DX: A41.9 Sepsis, unspecified organism (principal); K72.00 Acute and subacute hepatic failure without coma; G92.8 Other toxic encephalopathy; J18.9 Pneumonia, unspecified organism; I42.9 Cardiomyopathy, unspecified; E72.20 Disorder of urea cycle metabolism, unspecified; E87.2 Acidosis; E03.9 Hypothyroidism, unspecified; K74.3 Primary biliary cirrhosis; G62.0 Drug-induced polyneuropathy; I10 Essential (primary) hypertension; F10.20 Alcohol dependence, uncomplicated; T45.1X5A Adverse effect of antineoplastic and immunosuppressive drugs, initial encounter; Z85.71 Personal history of Hodgkin lymphoma; Z98.890 Other specified postprocedural states; Z90.89 Acquired absence of other organs; Z79.01 Long term (current) use of anticoagulants; Z71.6 Tobacco abuse counseling; Z79.899 Other long term (current) drug therapy; Z88.6 Allergy status to analgesic agent; Z91.030 Bee allergy status; Z88.8 Allergy status to other drugs, medicaments and biological substances; Z88.1 Allergy status to other antibiotic agents
CPT/HCPCS: 36415; 51702; 70450; 71045; 80053; 80076; 81001; 82140; 82803; 82947; 83605; 84439; 84443; 84481; 85025; 93005; 93010; 96361-59; 96365-59; 96366-59; 96368; 96375-59; 99285-25; A9270; G0480; J1630; J1790; J2543; J3411; J3475; J7030; J7042

== ENCOUNTER → 2021-11-04 | Outpatient (CLI) | payer OTHER ==
[~2021-11-04] MED LIST changes: +Amoxicillin500 MG PO; +Enulose10 GM/15 M PO; +VISBIOME 112.51 EACH PO; +ZOLP10 PO
[2021-11-06 09:11] LABS: HPV 16 Negative (Negative); HPV 18 Negative (Negative); HPV OTHER HR TYPES Negative (Negative)
== END | disposition home or self-care (01) ==
LOC: LAB SHORT 11:50
PROVIDERS: Registered Nurse
DX: Z12.4 Encounter for screening for malignant neoplasm of cervix (principal)
CPT/HCPCS: 87624; G0123

== ENCOUNTER 2022-01-21 16:21 | Observation (INO) | payer OTHER ==
[~2022-01-21] VITALS: Ht 175.3 cm; Wt 106.0 kg
[2022-01-21 18:00] LABS: BASOPHILS ABSOLUTE AUTO 0.02 K/mm3 (0.00-0.23); BASOPHILS PERCENT AUTO 1 % (0-2); EOSINOPHILS ABSOLUTE AUTO 0.01 K/mm3 (0.00-0.68); EOSINOPHILS PERCENT AUTO 0 % (0-6); Hematocrit 47.6 % (33.0-51.0); Hemoglobin 16.1 g/dL (11.5-16.0); IMMATURE GRAN ABSOLUTE AUTO 0.01 K/mm3 (0.00-0.10); IMMATURE GRAN PERCENT AUTO 0 % (0-1); LYMPHOCYTES ABSOLUTE AUTO 0.48 K/mm3 (0.84-5.20); LYMPHOCYTES PERCENT AUTO 11 % (21-46); MONOCYTES ABSOLUTE AUTO 0.56 K/mm3 (0.16-1.47); MONOCYTES PERCENT AUTO 13 % (4-13); Mean Corpuscular HGB 33.2 pg (26.0-34.0); Mean Corpuscular HGB Conc 33.8 g/dL (31.5-36.5); Mean Corpuscular Volume 98 fL (80-100); Mean Platelet Volume 9.8 fL (9.1-12.4); NEUTROPHILS ABSOLUTE AUTO 3.12 K/mm3 (1.96-9.15); NEUTROPHILS PERCENT AUTO 74 % (41-73); Platelet Count 141 K/mm3 (150-400); RDW Coefficient Variation 15.1 % (11.7-14.2); Red Blood Cell Count 4.85 M/mm3 (3.80-5.20)
[2022-01-21 18:20] LABS: Albumin, Blood 3.4 g/dL (3.4-5.0); Bilirubin, Total 1.2 mg/dL (0.1-1.0); Bun/Creatinine Ratio 19.5 (12.0-20.0); Calcium, Blood 10.2 mg/dL (8.5-10.1); Creatinine, Blood 1.18 mg/dL (0.40-1.00); Globulin, Blood 3.4 g/dL (2.2-4.0); Potassium, Blood 3.8 mmol/L (3.5-5.5); Total Protein, Blood 6.8 g/dL (6.4-8.2)
[2022-01-21 21:33] LABS: Source, Urine Straight Cath
[2022-01-21 21:38] LABS: Bilirubin, Urine Neg (Neg); Blood, Urine Neg (Neg); Glucose Qualitative, Urine Neg (Neg); Ketones, Urine 1+ (Neg); Leukocyte Esterase, Urine Neg (Neg); Nitrite, Urine Neg (Neg); Protein, Urine 1+ (Neg); Specific Gravity, Urine 1.025 (1.003-1.022); Urobilinogen, Urine NORM (Normal)
[2022-01-21 21:56] LABS: Appearance, Urine Hazy (Clear); Color, Urine Yellow (P-Yellow)
[2022-01-21 21:58] LABS: Bacteria Many /hpf; Red Blood Cells, Urine Not Seen /hpf (0-2); Squamous Epithelial Cells Mod /hpf (Few); White Blood Cells, Urine 0-2 /hpf (0-5)
[2022-01-22 05:25] LABS: BASOPHILS ABSOLUTE AUTO 0.02 K/mm3 (0.00-0.23); BASOPHILS PERCENT AUTO 0 % (0-2); EOSINOPHILS ABSOLUTE AUTO 0.04 K/mm3 (0.00-0.68); EOSINOPHILS PERCENT AUTO 1 % (0-6); Hematocrit 43.1 % (33.0-51.0); Hemoglobin 14.5 g/dL (11.5-16.0); IMMATURE GRAN ABSOLUTE AUTO 0.01 K/mm3 (0.00-0.10); IMMATURE GRAN PERCENT AUTO 0 % (0-1); LYMPHOCYTES ABSOLUTE AUTO 0.93 K/mm3 (0.84-5.20); LYMPHOCYTES PERCENT AUTO 19 % (21-46); MONOCYTES ABSOLUTE AUTO 0.93 K/mm3 (0.16-1.47); MONOCYTES PERCENT AUTO 19 % (4-13); Mean Corpuscular HGB 33.2 pg (26.0-34.0); Mean Corpuscular HGB Conc 33.6 g/dL (31.5-36.5); Mean Corpuscular Volume 99 fL (80-100); NEUTROPHILS ABSOLUTE AUTO 2.88 K/mm3 (1.96-9.15); NEUTROPHILS PERCENT AUTO 60 % (41-73); Platelet Count 151 K/mm3 (150-400); RDW Coefficient Variation 15.1 % (11.7-14.2); RDW Standard Deviation 55.4 fL (35.1-46.3); Red Blood Cell Count 4.37 M/mm3 (3.80-5.20); White Blood Cell Count 4.81 K/mm3 (4.00-11.30)
[2022-01-22 06:00] LABS: Albumin, Blood 2.9 g/dL (3.4-5.0); Bilirubin, Total 1.3 mg/dL (0.1-1.0); Bun/Creatinine Ratio 19.1 (12.0-20.0); Calcium, Blood 9.3 mg/dL (8.5-10.1); Creatinine, Blood 1.15 mg/dL (0.40-1.00); Total Protein, Blood 5.9 g/dL (6.4-8.2)
== END 2022-01-22 11:59 | disposition home or self-care (01) ==
LOC: ER 16:21 → MEDS 16:22 → ENPENDDIS 01-22 10:36 → MEDS 01-22 11:59
PROVIDERS: Emergency Medicine; ADMIT Family Medicine
DX: K72.00 Acute and subacute hepatic failure without coma (principal); K74.3 Primary biliary cirrhosis; E89.0 Postprocedural hypothyroidism; K21.9 Gastro-esophageal reflux disease without esophagitis; G62.9 Polyneuropathy, unspecified; I42.9 Cardiomyopathy, unspecified; K76.6 Portal hypertension; C81.90 Hodgkin lymphoma, unspecified, unspecified site; D63.0 Anemia in neoplastic disease; I12.9 Hypertensive chronic kidney disease with stage 1 through stage 4 chronic kidney disease, or unspecified chronic kidney disease; D69.6 Thrombocytopenia, unspecified; E66.01 Morbid (severe) obesity due to excess calories; N18.30 Chronic kidney disease, stage 3 unspecified; Z88.1 Allergy status to other antibiotic agents; Z88.8 Allergy status to other drugs, medicaments and biological substances; Z79.01 Long term (current) use of anticoagulants; Z86.718 Personal history of other venous thrombosis and embolism; Z88.6 Allergy status to analgesic agent; Z68.41 Body mass index [BMI] 40.0-44.9, adult
CPT/HCPCS: 36415; 71045; 80053; 81001; 82140; 85025; 87077; 87086; 87186; 93005; 93010; 99285-25; A9270

== ENCOUNTER 2022-03-22 04:45 | Observation (INO) | payer OTHER ==
[~2022-03-22] VITALS: Ht 172.7 cm; Wt 110.3 kg
[2022-03-22 05:27] LABS: BASOPHILS ABSOLUTE AUTO 0.03 K/mm3 (0.00-0.23); BASOPHILS PERCENT AUTO 1 % (0-2); EOSINOPHILS ABSOLUTE AUTO 0.08 K/mm3 (0.00-0.68); EOSINOPHILS PERCENT AUTO 2 % (0-6); Hematocrit 43.9 % (33.0-51.0); Hemoglobin 14.8 g/dL (11.5-16.0); IMMATURE GRAN ABSOLUTE AUTO 0.01 K/mm3 (0.00-0.10); IMMATURE GRAN PERCENT AUTO 0 % (0-1); LYMPHOCYTES ABSOLUTE AUTO 1.11 K/mm3 (0.84-5.20); LYMPHOCYTES PERCENT AUTO 21 % (21-46); MONOCYTES PERCENT AUTO 17 % (4-13); Mean Corpuscular HGB 33.6 pg (26.0-34.0); Mean Corpuscular HGB Conc 33.7 g/dL (31.5-36.5); Mean Corpuscular Volume 100 fL (80-100); Mean Platelet Volume 10.6 fL (9.1-12.4); NEUTROPHILS ABSOLUTE AUTO 3.18 K/mm3 (1.96-9.15); NEUTROPHILS PERCENT AUTO 60 % (41-73); Platelet Count 148 K/mm3 (150-400); Red Blood Cell Count 4.41 M/mm3 (3.80-5.20); White Blood Cell Count 5.31 K/mm3 (4.00-11.30)
[2022-03-22 05:48] LABS: Albumin, Blood 3.3 g/dL (3.4-5.0); Bilirubin, Total 1.1 mg/dL (0.1-1.0); Bun/Creatinine Ratio 18.2 (12.0-20.0); Calcium, Blood 9.9 mg/dL (8.5-10.1); Creatinine, Blood 1.1 mg/dL (0.40-1.00); Globulin, Blood 3.3 g/dL (2.2-4.0); Potassium, Blood 4.1 mmol/L (3.5-5.5); Total Protein, Blood 6.6 g/dL (6.4-8.2)
[2022-03-22 07:04] LABS: International Normalized Ratio 1.44; Prothrombin Time Results 14.8 Sec (9.7-11.5)
[2022-03-22 08:06] LABS: Source, Urine Foley catheter
[2022-03-22 08:11] LABS: Bilirubin, Urine Neg (Neg); Blood, Urine Neg (Neg); Glucose Qualitative, Urine Neg (Neg); Ketones, Urine Neg (Neg); Leukocyte Esterase, Urine Neg (Neg); Nitrite, Urine Neg (Neg); Protein, Urine Neg (Neg); Specific Gravity, Urine 1.015 (1.003-1.022); Urobilinogen, Urine NORM (Normal)
[2022-03-22 08:18] LABS: Appearance, Urine Clear (Clear); Color, Urine Yellow (P-Yellow)
--- NOTE | 2022-03-22 18:41 | NUR ---
PT NEW ADMIT TODAY FROM ER. WAS QUITE CONFUSED. IMPROVED MUCH. HAS BEEN TAKING LACTULOSE PRESCRIBED. STATES DOES SKIP AT HOME AND THIS PROB CAUSES PROBLEM. IN TO SEE TODAY. ALSO HER SON. HAS BEEN ABLE TO AMBULATE TO BATHROOM WITH FWW TODAY. NEEDS IV TODAY. WAS UNABLE TO GET DONE. NO NEW CONCERNS NOTED. BED IN LOW POSITION, CALL LITE IN REACH, CALLS APPROP
--- NOTE | 2022-03-23 06:23 | NUR ---
SHIFT SUMMARY NOC: PT RECIEVED BEDTIME LACTULOSE. PT UP TO BATHROOM NUMEROUS TIMES FOR BOWEL MOVEMENTS THROUGHOUT NIGHT. SBA WITH FWW. PT IS A&O*3 PT HAS MOMENTS OF CONFUSION. MORNING AMMONIA 17. PT HAS DAVIS IN PLACE DRAINING CLEAR YELLOW URINE.
--- NOTE | 2022-03-23 11:52 | NUR ---
PATIENT D/C'D TO HOME WITH . DC INSTRUCTIONS AND EDUCATION DISCUSSED WITH PATIENT AND COPY PROVIDED. NO NEW RX MEDICATIONS. PATIENT DENIES ANY QUESTIONS OR CONCERNS.
== END 2022-03-23 11:51 | disposition home or self-care (01) ==
LOC: ER 04:45 → MEDS 04:46 → ERHOLD 04:46 → MEDS 13:00
PROVIDERS: Emergency Medicine; Student in an Organized Health Care Education/Training Program; ADMIT Internal Medicine
DX: G92.8 Other toxic encephalopathy (principal); K72.90 Hepatic failure, unspecified without coma; K74.3 Primary biliary cirrhosis; E03.9 Hypothyroidism, unspecified; G62.0 Drug-induced polyneuropathy; T45.1X5A Adverse effect of antineoplastic and immunosuppressive drugs, initial encounter; Z74.09 Other reduced mobility; Z88.6 Allergy status to analgesic agent; Z88.1 Allergy status to other antibiotic agents; Z91.038 Other insect allergy status; Z91.048 Other nonmedicinal substance allergy status
CPT/HCPCS: 36415; 51702; 70450; 80053; 81003; 82140; 85025; 85610; 93005; 93010; A9270

== ENCOUNTER 2022-05-28 10:23 | Inpatient (IN) | payer OTHER ==
[~2022-05-28] VITALS: Ht 165.1 cm; Wt 112.5 kg
[~2022-05-28 10:23] MED LIST changes: +Atarax10 MG
[2022-05-28 10:47] LABS: BASOPHILS ABSOLUTE AUTO 0.02 K/mm3 (0.00-0.23); BASOPHILS PERCENT AUTO 0 % (0-2); EOSINOPHILS ABSOLUTE AUTO 0.02 K/mm3 (0.00-0.68); EOSINOPHILS PERCENT AUTO 0 % (0-6); Hematocrit 41.3 % (33.0-51.0); Hemoglobin 13.6 g/dL (11.5-16.0); IMMATURE GRAN ABSOLUTE AUTO 0.01 K/mm3 (0.00-0.10); IMMATURE GRAN PERCENT AUTO 0 % (0-1); LYMPHOCYTES ABSOLUTE AUTO 0.69 K/mm3 (0.84-5.20); LYMPHOCYTES PERCENT AUTO 15 % (21-46); MONOCYTES ABSOLUTE AUTO 0.53 K/mm3 (0.16-1.47); MONOCYTES PERCENT AUTO 11 % (4-13); Mean Corpuscular HGB 32.2 pg (26.0-34.0); Mean Corpuscular HGB Conc 32.9 g/dL (31.5-36.5); Mean Corpuscular Volume 98 fL (80-100); Mean Platelet Volume 10.5 fL (9.1-12.4); NEUTROPHILS ABSOLUTE AUTO 3.42 K/mm3 (1.96-9.15); NEUTROPHILS PERCENT AUTO 73 % (41-73); Platelet Count 149 K/mm3 (150-400); RDW Coefficient Variation 14.9 % (11.7-14.2); RDW Standard Deviation 53.2 fL (35.1-46.3); Red Blood Cell Count 4.22 M/mm3 (3.80-5.20); White Blood Cell Count 4.69 K/mm3 (4.00-11.30)
[2022-05-28 10:53] LABS: Source, Urine Clean Catch
[2022-05-28 10:57] LABS: Appearance, Urine Clear (Clear); Bilirubin, Urine Neg (Neg); Blood, Urine 4+ (Neg); Color, Urine Yellow (P-Yellow); Glucose Qualitative, Urine Neg (Neg); Ketones, Urine Neg (Neg); Leukocyte Esterase, Urine Neg (Neg); Nitrite, Urine Neg (Neg); Protein, Urine Neg (Neg); Urobilinogen, Urine NORM (Normal)
[2022-05-28 11:05] LABS: Bacteria Many /hpf; Squamous Epithelial Cells Few /hpf (Few); White Blood Cells, Urine 0-2 /hpf (0-5)
[2022-05-28 11:06] LABS: Yeast/Fungi Urine Rare /hpf
[2022-05-28 11:08] LABS: Albumin, Blood 3.2 g/dL (3.4-5.0); Albumin/Globulin Ratio 0.9 (0.8-1.8); Bilirubin, Total 0.8 mg/dL (0.1-1.0); Bun/Creatinine Ratio 19.3 (12.0-20.0); Calcium, Blood 9.4 mg/dL (8.5-10.1); Creatinine, Blood 1.14 mg/dL (0.40-1.00); Globulin, Blood 3.6 g/dL (2.2-4.0); Potassium, Blood 3.8 mmol/L (3.5-5.5); Total Protein, Blood 6.8 g/dL (6.4-8.2)
--- NOTE | 2022-05-28 12:39 | NUR ---
ADMIT NOTE PT ARRIVED TO PCU APPROX. 1225. SHE IS ALERT TO SELF AND JAQUI BUT CRIED OUT WHEN TRANSFERRING TO BED. VSS. SIGNIFICANT OTHER IS AT BEDSIDE. BED ALARM ON.
--- NOTE | 2022-05-28 17:49 | NUR ---
SHIFT SUMMARY PT IS ALERT AND ORIENTED TO SELF, FAMILY, DATE/TIME AND PLACE BUT NOT EVENT. SHE USES THE CALL LIGHT APPROPRIATELY. BP AND HR STABLE, SHE IS ON RA AND SPO2 100%. AT APPROX. 1500 THIS NURSE REASSESSED PT MENTATION AND SHE WAS MUCH IMPROVED AND WAS ABLE TO AMBULATE TO BATHROOM A SBA TO MANAGE LINES. IV IN LEFT AC IS INFUSING PER EMAR ORDERS. SHE HAD EPISODE OF INCONTINENCE OF STOOL UPON ADMIT WHEN HER MENTATION WAS ALTERED BUT IS NOW ABLE TO LET STAFF KNOW WHEN SHE NEEDS TO AMBULATE TO BATHROOM SBA W/ FWW. SHE HAS DENIED FEELINGS OF PAIN/NAUSEA WELL FEELING LIGHTHEADED/DIZZY. HER SIGNIFICANT OTHER JAQUI WAS AT BEDSIDE UPON ADMIT. NO COUGH NOTED. NO OTHER ACUTE CHANGES NOTED. PT IS NOW EATING DINNER. WILL CONTINUE TO MONITOR UNTIL REPORT GIVEN. CALL LIGHT IS IN REACH.
--- NOTE | 2022-05-28 20:00 | NUR ---
ASSUMED CARE. AOX3, ABLE TO ANSWER ALL QUESTIONS, TELL HISTORY. ABLE TO USE CALL LIGHT APPROPIATLY. STATES SHE HAS HAD SEVERAL BM TODAY AND STATES SHE WILL GET SICK IF SHE TAKES ANY MORE OF THE LACTOLOSE. STATES SHE TOOK 2 DOSAGES OF IT AT HOME AND DOES NOT KNOW WHY SHE ENDED UP HERE. DENIES PAIN OR DISCOMFORT. LUNGS ARE CLEARW. BLE WITH BRUISING AND DISCOLORATION, STATES IT IS FROM TAKING CHEMO FOR SO MANY YEARS. SCD PUT ON, IVF INFUSING. CALL LIGHT IN REACH.
[2022-05-29 04:45] LABS: Albumin, Blood 2.5 g/dL (3.4-5.0); Albumin/Globulin Ratio 0.9 (0.8-1.8); Bilirubin, Total 0.9 mg/dL (0.1-1.0); Bun/Creatinine Ratio 20.2 (12.0-20.0); Calcium, Blood 9.1 mg/dL (8.5-10.1); Creatinine, Blood 0.99 mg/dL (0.40-1.00); Globulin, Blood 2.8 g/dL (2.2-4.0); Potassium, Blood 3.7 mmol/L (3.5-5.5); Total Protein, Blood 5.3 g/dL (6.4-8.2)
--- NOTE | 2022-05-29 05:25 | NUR ---
SHIFT SUMMARY: PT HAS REMAINED AOX4 ENTIRE SHIFT, TAKING HER LACTOLOSE WITH NO BM TO NOTE. VS HAVE BEEN WNL, NO PAIN OR DISCOMFORT. ABD SOFT, NON-TENDER. BLE EDEMA PRESENT STATES IS HER NORM. PLANS TO DROP OFF CLOTHING THIS AM FOR HER TO WHERE HOME TODAY SHE IS HOPING TO BE DISCHARGE. CALL LIGHT REMAINS IN REACH. NO CHANGES TO NOTE.
--- NOTE | 2022-05-29 10:22 | NUR ---
PT DISCHARGE TO HOME TODAY WITH DISCHARGE ORDERS, NO NEW MEDICATION, TO CONTINUE HOME MEDS AT HOME, TO FOLLOW-UP WITH PCP IN A WEEK. PTS VITALS HAS BEEN STABLE, GETS UP VIA WALKER TO USE THE BATHROOM, SBA AMBULATORY. STILL HAVING LOOSE BM DUE TO LACTULOSE, DISCHARGE INSTRUCTIONS DISCLOSED WITH THE PT. TO CONTINUE TAKING LACTULOSE 3-4X A DAY WITH A GOAL OF 3 LARGE BMS. PT VERBALIZED UNDERSTANDING. ALL BELONGINGS SENT WITH THE PT, ACCOMPANIED VIA WHEELCHAIR FOR TRANSPORT, SON PROVIDED TRANSPORTATION FOR THE PT.
[2022-06-08] MEDS ORDERED: GABA300 PO ×2 (16:28)
== END 2022-05-29 10:09 | disposition home or self-care (01) | DRG 441 ==
LOC: ER 10:23 → PCU 11:43 → MEDS 11:43 → PCU 12:31
PROVIDERS: Emergency Medicine; ADMIT Internal Medicine
DX: K76.82 Hepatic encephalopathy (principal); G92.8 Other toxic encephalopathy; K76.6 Portal hypertension; E72.20 Disorder of urea cycle metabolism, unspecified; K74.3 Primary biliary cirrhosis; E03.9 Hypothyroidism, unspecified; G62.0 Drug-induced polyneuropathy; T45.1X5A Adverse effect of antineoplastic and immunosuppressive drugs, initial encounter; K57.90 Diverticulosis of intestine, part unspecified, without perforation or abscess without bleeding; Z74.09 Other reduced mobility; Z96.89 Presence of other specified functional implants; Z88.8 Allergy status to other drugs, medicaments and biological substances; Z91.038 Other insect allergy status; Z88.1 Allergy status to other antibiotic agents; Z79.899 Other long term (current) drug therapy; Z79.01 Long term (current) use of anticoagulants; Z79.891 Long term (current) use of opiate analgesic; Z85.71 Personal history of Hodgkin lymphoma; Z85.850 Personal history of malignant neoplasm of thyroid; Z98.890 Other specified postprocedural states; Z95.828 Presence of other vascular implants and grafts
CPT/HCPCS: 36415; 51701; 80053; 81001; 82140; 84443; 85025; 87086; 93975; 99285-25; A9270; J2405; J7120

== ENCOUNTER 2022-07-20 04:43 | Observation (INO) | payer OTHER ==
[~2022-07-20] VITALS: Ht 172.7 cm; Wt 110.0 kg
[2022-07-20 05:09] LABS: BASOPHILS ABSOLUTE AUTO 0.02 K/mm3 (0.00-0.23); BASOPHILS PERCENT AUTO 1 % (0-2); EOSINOPHILS PERCENT AUTO 3 % (0-6); Hematocrit 37.1 % (33.0-51.0); Hemoglobin 12.1 g/dL (11.5-16.0); IMMATURE GRAN ABSOLUTE AUTO 0.01 K/mm3 (0.00-0.10); IMMATURE GRAN PERCENT AUTO 0 % (0-1); LYMPHOCYTES ABSOLUTE AUTO 1.12 K/mm3 (0.84-5.20); LYMPHOCYTES PERCENT AUTO 29 % (21-46); MONOCYTES ABSOLUTE AUTO 0.71 K/mm3 (0.16-1.47); MONOCYTES PERCENT AUTO 19 % (4-13); Mean Corpuscular HGB 29.7 pg (26.0-34.0); Mean Corpuscular HGB Conc 32.6 g/dL (31.5-36.5); Mean Corpuscular Volume 91 fL (80-100); Mean Platelet Volume 10.2 fL (9.1-12.4); NEUTROPHILS ABSOLUTE AUTO 1.86 K/mm3 (1.96-9.15); NEUTROPHILS PERCENT AUTO 49 % (41-73); Platelet Count 168 K/mm3 (150-400); RDW Coefficient Variation 16.5 % (11.7-14.2); RDW Standard Deviation 54.5 fL (35.1-46.3); Red Blood Cell Count 4.08 M/mm3 (3.80-5.20); White Blood Cell Count 3.82 K/mm3 (4.00-11.30)
[2022-07-20 05:15] LABS: Source, Urine Straight Cath
[2022-07-20 05:23] LABS: Bilirubin, Urine Neg (Neg); Blood, Urine 4+ (Neg); Color, Urine Yellow (P-Yellow); Glucose Qualitative, Urine Neg (Neg); Ketones, Urine Neg (Neg); Leukocyte Esterase, Urine 1+ (Neg); Nitrite, Urine Neg (Neg); Protein, Urine 1+ (Neg); Specific Gravity, Urine 1.015 (1.003-1.022); Urobilinogen, Urine NORM (Normal); pH, Urine 6.5 (5.0-8.0)
[2022-07-20 05:26] LABS: Alanine Aminotransfer (ALT/SGP 38 U/L (12-78); Albumin, Blood 2.9 g/dL (3.4-5.0); Albumin/Globulin Ratio 0.8 (0.8-1.8); Alk Phos 327 U/L (50-136); Anion Gap 6 mmol/L (6-16); Aspartate Aminotrans (AST/SGOT 48 U/L (12-37); Blood Urea Nitrogen 26 mg/dL (8-24); CO2, Blood 28 mmol/L (21-32); Calcium, Blood 9.3 mg/dL (8.5-10.1); Chloride, Blood 107 mmol/L (98-108); Creatinine, Blood 1.04 mg/dL (0.40-1.00); Ethanol (Alcohol), Blood, Med <3 mg/dL; Globulin, Blood 3.5 g/dL (2.2-4.0); Glomerular Filtration Rate 61 (60-); Glucose, Blood 145 mg/dL (70-99); Potassium, Blood 3.7 mmol/L (3.5-5.5); Sodium, Blood 141 mmol/L (136-145); Total Protein, Blood 6.4 g/dL (6.4-8.2)
[2022-07-20 05:29] LABS: Appearance, Urine Hazy (Clear)
[2022-07-20 05:30] LABS: Bacteria Mod /hpf; Squamous Epithelial Cells Rare /hpf (Few)
[2022-07-20 05:45] LABS: U Amphetamine Screen Not Detected; U Barbituate Screen Not Detected; U Benzodiazapine Screen Not Detected; U Buprenorphine Screen Not Detected; U Cannabinoids Screen Not Detected; U Cocaine Screen Not Detected; U Methadone Screen Not Detected; U Methamphetamine Screen Not Detected; U Opiates Screen DETECTED; U Oxycodone Screen Not Detected; U Phencyclidine Screen Not Detected; U Propoxyphene Screen Not Detected
[2022-07-20 08:42] LABS: Influenza A, PCR NEGATIVE (NEGATIVE); Influenza B, PCR NEGATIVE (NEGATIVE); Resp Syncytial Virus, PCR NEGATIVE (NEGATIVE); SARS-Cov-2 (COVID-19) PCR, MMC NEGATIVE (NEGATIVE)
--- NOTE | 2022-07-20 20:37 | NUR ---
PT ARRIVED FROM ED AT 1440. PT'S AT BEDSIDE. PT ALERT AND RESPONDES APPROPRIATELY. PLEASANT AND COOPERATIVE OF CARE. PT CAME WITH RECTAL TUBE IN PLACE. PT VERBALIZED DISCOMFORT FROM TUBE BUT REPOSITIONING PROVIDED RELIEF. PT SLEPT DRUING AFTERNOON BUT WAS EASILY ROUSED. NO C/O PAIN. PT VERBALIZED FRUSTRATION THAT SHE IS BACK IN THE HOSPTIAL AGAIN. ATTEMPTED BEDSIDE SWOLLOW EVAL BUT PT COUGHED AND APPEARED TO ASPIRATE ON TEASPOON OF WATER GIVEN BY SPOON. PT INCONTIENT OF URINE. BED IN LOWEST POSITION AND CALL LIGHT IN REACH. REPORT GIVEN TO RACK WASHER NURSE.
[2022-07-21 05:13] LABS: Hematocrit 34.3 % (33.0-51.0); Hemoglobin 10.9 g/dL (11.5-16.0); Mean Corpuscular HGB 29.5 pg (26.0-34.0); Mean Corpuscular HGB Conc 31.8 g/dL (31.5-36.5); Mean Corpuscular Volume 93 fL (80-100); Mean Platelet Volume 10.5 fL (9.1-12.4); Platelet Count 168 K/mm3 (150-400); RDW Coefficient Variation 16.8 % (11.7-14.2); RDW Standard Deviation 56.8 fL (35.1-46.3); Red Blood Cell Count 3.69 M/mm3 (3.80-5.20); White Blood Cell Count 6.19 K/mm3 (4.00-11.30)
[2022-07-21 05:46] LABS: Albumin, Blood 2.6 g/dL (3.4-5.0); Albumin/Globulin Ratio 0.8 (0.8-1.8); Bilirubin, Total 1.2 mg/dL (0.1-1.0); Bun/Creatinine Ratio 23.7 (12.0-20.0); Calcium, Blood 8.6 mg/dL (8.5-10.1); Creatinine, Blood 0.93 mg/dL (0.40-1.00); Globulin, Blood 3.1 g/dL (2.2-4.0); Potassium, Blood 3.7 mmol/L (3.5-5.5); Total Protein, Blood 5.7 g/dL (6.4-8.2)
--- NOTE | 2022-07-21 06:06 | NUR ---
SUMMARY: PT A/OX4, CALLS APPROPRIATELY TO SPECIFY NEEDS AND IS PLEASANT AND COOPERATIVE W/CARE. AMS SEEMS RESOLVED FROM PREVIOUS SO BEDSIDE SWALLOW EVAL WAS COMPLETED AND PT TOLERATED PO LIQ'S W/O DIFFICULTY. SHE'S BEEN ABLE TO SAFELY T/F W/SBA TO BSC AND RECTAL TUBE WAS DC'D W/LACTULOSE SWITCHED TO PO ROUTE. NO ACUTE CHANGES, VSS/AFERBRILE. WCTM AND REPORT TO DAY RN.
--- NOTE | 2022-07-21 11:13 | NUR ---
"Spiritual Care | Nurse Request Pt. is awake in bed and welcomes my visit. Pt. displays evidence of having been tearful and inconsolable. Listen empathetically with a calming presence. Pt. displays evidence of trust and her countenance lifts. Pt. verbalizes that she does not know how long she can continue in her limited capacity. Pastoral nurses[employer] association counselor and encouragement is given, and Pt. responds. Pts. SO is present for much of the visit. Rapport is established. Prayed with the Pt. Pt. and SO both verbalize gratitude for the spiritual care visit."
--- NOTE | 2022-07-21 19:49 | NUR ---
SHIFT SUMMARY PT A&OX4 AND PLEASANT. USES CALL LIGHT APPROPRIATELY. PT EMOTIONAL IN THE MORNING ABOUT ILLNESS R/T LIVER FAILURE. THIS NURSE LISTENED TO PT AND SAT WITH HER FOR SOME TIME. PT REQUESTED TO SPEAK WITH GENARO AND VERBALIZED FEELING MORE AT [place] AFTER THE VISIT. NO C/O PAIN. REPORT GIVEN TO [employer] NURSE NURSE.
--- NOTE | 2022-07-22 04:53 | NUR ---
SHIFT MOSTLY UNREMARKABLE. PATIENT IS MOSTLY INDEPENDENT IN THE ROOM. STANDBY ASSIST TO RESTROOM TO ENSURE SAFETY. PATIENT TOOK LACTULOSE WITHOUT DIFFICULTY BUT COMPLAINED OF TASTE THROUGHOUT ADMINISTRATION. PATIENT PLANS ON LEAVING TODAY AND IS ENTHUSIASTIC ABOUT THE DISCHARGE. CALL LIGHT LEFT WITHIN REACH.
[2022-07-22] MEDS ORDERED: RIFA550T2 PO (12:01)
--- NOTE | 2022-07-22 12:21 | NUR ---
DISCHARGE SUMMARY PT AxOx4. PLEASANT AND COOPERATIVE WITH CARE. PT IS DISCHARGING HOME TODAY WITH SSIS ARCHITECT. PT DENIES PAIN THIS AM. VITALS REVIEWED. PT DECLINED TAKING LACTULOSE THIS AM. STATES "I WILL TAKE IT WHEN I GET HOME." SHE STATES SHE DOES "NOT WANT TO HAVE AN ACCIDENT WHILE SHE IS TRAVELING HOME." DISCHARGE INSTRUCTIONS GIVEN TO PATIENT AND SSIS ARCHITECT, INCLUDING DC MEDICATION LIST, FOLLOW UP APPOINTMENT INFO AND PATIENT EDUCATION. PT VERBALIZES UNDERSTANDING AND DENIES ANY FURTHER QUESTIONS AT THIS TIME. PT SAFELY ESCORTED OUT VIA WC WITH SPRAY GUN SIZER AND SSIS ARCHITECT.
== END 2022-07-22 12:18 | disposition home or self-care (01) ==
LOC: ER 04:43 → MEDS 08:18 → ERHOLD 08:18 → MEDS 14:40
PROVIDERS: Student in an Organized Health Care Education/Training Program; ADMIT Internal Medicine
DX: K76.82 Hepatic encephalopathy (principal); G62.9 Polyneuropathy, unspecified; T45.1X5A Adverse effect of antineoplastic and immunosuppressive drugs, initial encounter; K74.3 Primary biliary cirrhosis; I10 Essential (primary) hypertension; Z91.199 Patient's noncompliance with other medical treatment and regimen due to unspecified reason; E03.9 Hypothyroidism, unspecified; Z20.822 Contact with and (suspected) exposure to COVID-19
CPT/HCPCS: 0241U; 36415; 70450; 71045; 80053; 81001; 82140; 82947; 83735; 85025; 85027; 87077; 87086; 87186; 93005; 93010; 96365; 96375; 96376; 99285-25; A9270; G0378; G0480; J0696; J2765; J3475; J7030

== ENCOUNTER 2022-11-21 21:45 | Emergency (ER) | payer OTHER ==
[~2022-11-21] VITALS: Ht 175.3 cm; Wt 108.9 kg
[~2022-11-21 21:45] MED LIST changes: +RIFA550T2 PO
[2022-11-21 22:06] LABS: BASOPHILS ABSOLUTE AUTO 0.04 K/mm3 (0.00-0.23); BASOPHILS PERCENT AUTO 1 % (0-2); EOSINOPHILS ABSOLUTE AUTO 0.13 K/mm3 (0.00-0.68); EOSINOPHILS PERCENT AUTO 3 % (0-6); Hematocrit 28.8 % (33.0-51.0); Hemoglobin 8.3 g/dL (11.5-16.0); IMMATURE GRAN ABSOLUTE AUTO 0.01 K/mm3 (0.00-0.10); IMMATURE GRAN PERCENT AUTO 0 % (0-1); LYMPHOCYTES ABSOLUTE AUTO 1.53 K/mm3 (0.84-5.20); LYMPHOCYTES PERCENT AUTO 34 % (21-46); MONOCYTES ABSOLUTE AUTO 0.79 K/mm3 (0.16-1.47); MONOCYTES PERCENT AUTO 18 % (4-13); Mean Corpuscular HGB 24.7 pg (26.0-34.0); Mean Corpuscular HGB Conc 28.8 g/dL (31.5-36.5); Mean Corpuscular Volume 86 fL (80-100); Mean Platelet Volume 10.9 fL (9.1-12.4); NEUTROPHILS ABSOLUTE AUTO 2.01 K/mm3 (1.96-9.15); NEUTROPHILS PERCENT AUTO 45 % (41-73); Platelet Count 184 K/mm3 (150-400); RDW Coefficient Variation 19.4 % (11.7-14.2); RDW Standard Deviation 60.6 fL (35.1-46.3); Red Blood Cell Count 3.36 M/mm3 (3.80-5.20); White Blood Cell Count 4.51 K/mm3 (4.00-11.30)
[2022-11-21 22:19] LABS: Albumin, Blood 2.8 g/dL (3.4-5.0); Albumin/Globulin Ratio 0.9 (0.8-1.8); Bilirubin, Total 0.8 mg/dL (0.1-1.0); Bun/Creatinine Ratio 21.2 (12.0-20.0); Calcium, Blood 8.9 mg/dL (8.5-10.1); Creatinine, Blood 0.9 mg/dL (0.40-1.00); Globulin, Blood 3.2 g/dL (2.2-4.0); Potassium, Blood 4.1 mmol/L (3.5-5.5)
[2022-11-21 22:22] LABS: International Normalized Ratio 1.35; Prothrombin Time Results 13.9 Sec (9.7-11.5)
== END 2022-11-21 23:42 | disposition short-term general hospital (02) ==
LOC: ER 21:45
PROVIDERS: Emergency Medicine
DX: K92.2 Gastrointestinal hemorrhage, unspecified (principal); E03.9 Hypothyroidism, unspecified; Z91.030 Bee allergy status; Z88.8 Allergy status to other drugs, medicaments and biological substances; Z79.899 Other long term (current) drug therapy; Z79.890 Hormone replacement therapy; Z79.02 Long term (current) use of antithrombotics/antiplatelets
CPT/HCPCS: 80053; 83690; 85025; 85610; 85730; 86850; 86900; 86901; 93005; 93010; 96374; 96375; 96376; 99285-25; C9113; J0696; J2354; J2765; J7050; J7168

== ENCOUNTER 2022-12-06 20:14 | Observation (INO) | payer OTHER ==
[2022-12-06 20:34] LABS: BASOPHILS ABSOLUTE AUTO 0.02 K/mm3 (0.00-0.23); BASOPHILS PERCENT AUTO 0 % (0-2); EOSINOPHILS PERCENT AUTO 2 % (0-6); Hematocrit 28.4 % (33.0-51.0); Hemoglobin 8.2 g/dL (11.5-16.0); IMMATURE GRAN PERCENT AUTO 0 % (0-1); LYMPHOCYTES PERCENT AUTO 29 % (21-46); MONOCYTES ABSOLUTE AUTO 0.74 K/mm3 (0.16-1.47); MONOCYTES PERCENT AUTO 15 % (4-13); Mean Corpuscular HGB Conc 28.9 g/dL (31.5-36.5); Mean Corpuscular Volume 83 fL (80-100); Mean Platelet Volume 10.5 fL (9.1-12.4); NEUTROPHILS ABSOLUTE AUTO 2.53 K/mm3 (1.96-9.15); NEUTROPHILS PERCENT AUTO 53 % (41-73); Platelet Count 149 K/mm3 (150-400); RDW Standard Deviation 60.5 fL (35.1-46.3); Red Blood Cell Count 3.42 M/mm3 (3.80-5.20); White Blood Cell Count 4.79 K/mm3 (4.00-11.30)
[2022-12-06 20:34] LABS: Source, Urine Voided
[2022-12-06 20:37] LABS: Bilirubin, Urine Neg (Neg); Blood, Urine 1+ (Neg); Glucose Qualitative, Urine Neg (Neg); Ketones, Urine 1+ (Neg); Leukocyte Esterase, Urine 1+ (Neg); Nitrite, Urine Neg (Neg); Protein, Urine 2+ (Neg); Urobilinogen, Urine 1+ (Normal)
[2022-12-06 20:45] LABS: Appearance, Urine Hazy (Clear); Color, Urine Yellow (P-Yellow)
[2022-12-06 20:47] LABS: Bacteria Many /hpf; Red Blood Cells, Urine 0-2 /hpf (0-2); Squamous Epithelial Cells Many /hpf (Few); Transitional Epithelial Cells Rare /hpf (0-Rare); Yeast/Fungi Urine Rare /hpf
[2022-12-06 20:48] LABS: Albumin/Globulin Ratio 0.9 (0.8-1.8); Bilirubin, Total 0.7 mg/dL (0.1-1.0); Bun/Creatinine Ratio 18.2 (12.0-20.0); Calcium, Blood 8.8 mg/dL (8.5-10.1); Creatinine, Blood 1.1 mg/dL (0.40-1.00); Globulin, Blood 3.2 g/dL (2.2-4.0); Potassium, Blood 3.7 mmol/L (3.5-5.5); Total Protein, Blood 6.2 g/dL (6.4-8.2)
[2022-12-06 23:25] LABS: Percent Saturation 4.8 % (15.0-50.0)
[2022-12-07 01:00] VITALS: BP 148/89
[2022-12-07 05:01] LABS: BASOPHILS ABSOLUTE AUTO 0.02 K/mm3 (0.00-0.23); BASOPHILS PERCENT AUTO 1 % (0-2); EOSINOPHILS ABSOLUTE AUTO 0.05 K/mm3 (0.00-0.68); EOSINOPHILS PERCENT AUTO 1 % (0-6); Hematocrit 26.4 % (33.0-51.0); Hemoglobin 7.7 g/dL (11.5-16.0); IMMATURE GRAN ABSOLUTE AUTO 0.01 K/mm3 (0.00-0.10); IMMATURE GRAN PERCENT AUTO 0 % (0-1); LYMPHOCYTES ABSOLUTE AUTO 0.77 K/mm3 (0.84-5.20); LYMPHOCYTES PERCENT AUTO 19 % (21-46); MONOCYTES ABSOLUTE AUTO 0.59 K/mm3 (0.16-1.47); MONOCYTES PERCENT AUTO 15 % (4-13); Mean Corpuscular HGB 24.1 pg (26.0-34.0); Mean Corpuscular HGB Conc 29.2 g/dL (31.5-36.5); Mean Corpuscular Volume 83 fL (80-100); Mean Platelet Volume 10.4 fL (9.1-12.4); NEUTROPHILS ABSOLUTE AUTO 2.61 K/mm3 (1.96-9.15); NEUTROPHILS PERCENT AUTO 65 % (41-73); Platelet Count 142 K/mm3 (150-400); RDW Coefficient Variation 19.7 % (11.7-14.2); RDW Standard Deviation 59.1 fL (35.1-46.3); Red Blood Cell Count 3.19 M/mm3 (3.80-5.20); White Blood Cell Count 4.05 K/mm3 (4.00-11.30)
[2022-12-07 05:28] LABS: Bun/Creatinine Ratio 18.3 (12.0-20.0); Calcium, Blood 8.6 mg/dL (8.5-10.1); Creatinine, Blood 0.98 mg/dL (0.40-1.00)
[2022-12-07 07:27] VITALS: BP 138/82
--- NOTE | 2022-12-07 13:12 | NUR ---
Upon receiving a referral for spiritual care, I visit with patient. She talks at length about her medical issues, her family unit complications and her Jewish anika. Patient shares about the heartache and emotional pain of going through chemo and radiation, of hving further health problems and not having the emotional/spiritual support that she needs. We explore ways of staying mentally and emotionally resilient and tapped into her rich spiritual background for maintaining her wellbeing. I normalized her experience, reinforced helpful attitudes and practices and provided therapeutic listening, theological insights and prayer. Patient responded well and showed signs of increased peace and an elevated mood. I will continue to remain available to patient and family.
[2022-12-07 15:31] VITALS: BP 129/66
--- NOTE | 2022-12-07 18:22 | NUR ---
SUMMARY- POWERGLBRITNI PLACED THIS SHIFT. PT IS AAOX4 THIS SHIFT. CALM AND COOPERATIVE. CALLS APPROPRIATELY. X1 ASSIST TO THE BATHROOM.
[2022-12-07 19:16] VITALS: BP 119/76
[2022-12-08] VITALS (9 sets, daily range): BP systolic 106–132; BP diastolic 56–83
[2022-12-08 04:37] LABS: BASOPHILS ABSOLUTE AUTO 0.02 K/mm3 (0.00-0.23); BASOPHILS PERCENT AUTO 1 % (0-2); EOSINOPHILS ABSOLUTE AUTO 0.13 K/mm3 (0.00-0.68); EOSINOPHILS PERCENT AUTO 4 % (0-6); Hematocrit 24.3 % (33.0-51.0); IMMATURE GRAN PERCENT AUTO 0 % (0-1); LYMPHOCYTES ABSOLUTE AUTO 0.71 K/mm3 (0.84-5.20); LYMPHOCYTES PERCENT AUTO 21 % (21-46); MONOCYTES PERCENT AUTO 21 % (4-13); Mean Corpuscular HGB 24.2 pg (26.0-34.0); Mean Corpuscular HGB Conc 28.8 g/dL (31.5-36.5); Mean Corpuscular Volume 84 fL (80-100); Mean Platelet Volume 10.1 fL (9.1-12.4); NEUTROPHILS ABSOLUTE AUTO 1.85 K/mm3 (1.96-9.15); NEUTROPHILS PERCENT AUTO 54 % (41-73); Platelet Count 126 K/mm3 (150-400); RDW Standard Deviation 61.7 fL (35.1-46.3); Red Blood Cell Count 2.89 M/mm3 (3.80-5.20); White Blood Cell Count 3.41 K/mm3 (4.00-11.30)
[2022-12-08 04:57] LABS: Albumin, Blood 2.5 g/dL (3.4-5.0); Anion Gap 0 mmol/L (6-16); Blood Urea Nitrogen 20 mg/dL (8-24); CO2, Blood 23 mmol/L (21-32); Calcium, Blood 8.6 mg/dL (8.5-10.1); Chloride, Blood 116 mmol/L (98-108); Creatinine, Blood 1.11 mg/dL (0.40-1.00); Glomerular Filtration Rate 57 (60-); Glucose, Blood 105 mg/dL (70-99); Phosphorus, Blood 3.3 mg/dL (2.5-4.9); Potassium, Blood 3.6 mmol/L (3.5-5.5); Sodium, Blood 139 mmol/L (136-145)
[2022-12-08 10:25] LABS: Stool Occult Blood Guaiac 1 Neg (Neg)
--- NOTE | 2022-12-08 15:03 | NUR ---
Glenn is lying in bed and alert. Patient tells me about a further delay in her d/c due to a blood transfusion and "some low numbers." She then requests that I anoint her head with oil as is mentioned in the Bible for those who are sick as part of the prayer for healing. I retrieve anointing oil and return to patient's rm. I anoint her head by making the sign of the cross on her forehead with oil that was dabbed on my finger. I then provide prayer as a request for healing. Patient then talks about how meaningful the experience was and that she felt that "God sent me into the for this purpose." She states that her hope and anika are rejuvenated. She explains about how wearisome her medical struggles have been as it feels like there has been problem after problem. She states that she now feels uplifted. I will cotnubiaue to remian available to patient and family.
--- NOTE | 2022-12-08 17:18 | NUR ---
SHIFT SUMMARY- PT IS A/O, PLESANT AND COOPERATIVE. HER HGB WAS LOW THIS SHIFT AND SHE RECIEVED A BLOOD TRANSFUSION. POSSIBLE DISCHARGE TOMORROW DEPENDING ON LABS. HER BED IS IN THE LOW POSITON AND CALL LIGHT IS GERBER GRIFFITHS.
[2022-12-09 02:19] VITALS: BP 123/70
[2022-12-09 04:46] LABS: BASOPHILS ABSOLUTE AUTO 0.02 K/mm3 (0.00-0.23); BASOPHILS PERCENT AUTO 1 % (0-2); EOSINOPHILS ABSOLUTE AUTO 0.16 K/mm3 (0.00-0.68); EOSINOPHILS PERCENT AUTO 4 % (0-6); Hematocrit 26.2 % (33.0-51.0); Hemoglobin 7.7 g/dL (11.5-16.0); IMMATURE GRAN ABSOLUTE AUTO 0.01 K/mm3 (0.00-0.10); IMMATURE GRAN PERCENT AUTO 0 % (0-1); LYMPHOCYTES ABSOLUTE AUTO 0.64 K/mm3 (0.84-5.20); LYMPHOCYTES PERCENT AUTO 17 % (21-46); MONOCYTES ABSOLUTE AUTO 0.76 K/mm3 (0.16-1.47); MONOCYTES PERCENT AUTO 21 % (4-13); Mean Corpuscular HGB 24.8 pg (26.0-34.0); Mean Corpuscular HGB Conc 29.4 g/dL (31.5-36.5); Mean Corpuscular Volume 84 fL (80-100); Mean Platelet Volume 10.3 fL (9.1-12.4); NEUTROPHILS ABSOLUTE AUTO 2.12 K/mm3 (1.96-9.15); NEUTROPHILS PERCENT AUTO 57 % (41-73); NRBC ABSOLUTE 0.02 K/mm3 (0.00-0.02); NRBC Auto 0.5 /100 WBC (0.0-0.2); Platelet Count 116 K/mm3 (150-400); RDW Coefficient Variation 19.1 % (11.7-14.2); RDW Standard Deviation 57.5 fL (35.1-46.3); Red Blood Cell Count 3.11 M/mm3 (3.80-5.20); White Blood Cell Count 3.71 K/mm3 (4.00-11.30)
[2022-12-09 07:33] VITALS: BP 116/64
--- NOTE | 2022-12-09 11:26 | NUR ---
LATE ENTRY-DISCHARGE 1049 PT DISCHARGED TO HOME. PT FAMILY AT BEDSIDE. PT ALERT AND ORIENTED X4. R/A INDEPENDENT IN THE ROOM WITH FWW. DISCHARGE INSTRUCTIONS DISCUSSED WITH PT AND CAREGIVER NO QUESTIONS AT THIS TIME.
== END 2022-12-09 10:53 | disposition home or self-care (01) ==
LOC: ER 20:14 → MEDS 20:15
PROVIDERS: Family Medicine; Student in an Organized Health Care Education/Training Program; ADMIT Student in an Organized Health Care Education/Training Program
DX: K76.82 Hepatic encephalopathy (principal); D50.9 Iron deficiency anemia, unspecified; D61.818 Other pancytopenia; N18.30 Chronic kidney disease, stage 3 unspecified; K74.60 Unspecified cirrhosis of liver; E03.9 Hypothyroidism, unspecified; D69.6 Thrombocytopenia, unspecified; E88.09 Other disorders of plasma-protein metabolism, not elsewhere classified; G62.9 Polyneuropathy, unspecified; Z86.718 Personal history of other venous thrombosis and embolism; Z88.2 Allergy status to sulfonamides; Z88.8 Allergy status to other drugs, medicaments and biological substances; Z79.01 Long term (current) use of anticoagulants; Z79.890 Hormone replacement therapy; Z79.899 Other long term (current) drug therapy
CPT/HCPCS: 36415; 36430; 80048; 80053; 80069; 81001; 82140; 82272; 82607; 82728; 82746; 83540; 83550; 83735; 85025; 86850; 86900; 86901; 86923; 87086; 96365; 97165; 97535; 99285-25; A9270; C1751; J0696; J1650; J2916; P9016

== ENCOUNTER 2022-12-10 00:25 | Day surgery (SDC) | payer OTHER ==
[2022-12-10 16:07] VITALS: BP 126/66
== END 2022-12-10 17:01 | disposition home or self-care (01) ==
LOC: ATC 00:25
DX: D50.9 Iron deficiency anemia, unspecified (principal); N18.30 Chronic kidney disease, stage 3 unspecified; E03.9 Hypothyroidism, unspecified; Z88.2 Allergy status to sulfonamides; Z88.6 Allergy status to analgesic agent; Z88.8 Allergy status to other drugs, medicaments and biological substances; Z79.899 Other long term (current) drug therapy; Z79.890 Hormone replacement therapy
CPT/HCPCS: 96365; J2916

== ENCOUNTER 2022-12-11 00:39 | Day surgery (SDC) | payer OTHER ==
[2022-12-11 08:46] VITALS: BP 101/45
== END 2022-12-11 09:47 | disposition home or self-care (01) ==
LOC: ATC 00:39
DX: D50.9 Iron deficiency anemia, unspecified (principal); N18.30 Chronic kidney disease, stage 3 unspecified; E03.9 Hypothyroidism, unspecified; Z88.2 Allergy status to sulfonamides; Z88.8 Allergy status to other drugs, medicaments and biological substances; Z79.890 Hormone replacement therapy; Z79.899 Other long term (current) drug therapy
CPT/HCPCS: 96365; J2916

== ENCOUNTER 2023-08-25 13:08 | Emergency (ER) | payer OTHER ==
[~2023-08-25] VITALS: Ht 175.3 cm; Wt 108.9 kg
[2023-08-25 13:14] VITALS: BP 154/91
[2023-08-25 14:10] LABS: BASOPHILS ABSOLUTE AUTO 0.03 K/mm3 (0.00-0.23); BASOPHILS PERCENT AUTO 1 % (0-2); EOSINOPHILS ABSOLUTE AUTO 0.04 K/mm3 (0.00-0.68); EOSINOPHILS PERCENT AUTO 1 % (0-6); Hematocrit 53.1 % (33.0-51.0); Hemoglobin 18.2 g/dL (11.5-16.0); IMMATURE GRAN ABSOLUTE AUTO 0.04 K/mm3 (0.00-0.10); IMMATURE GRAN PERCENT AUTO 1 % (0-1); LYMPHOCYTES ABSOLUTE AUTO 0.66 K/mm3 (0.84-5.20); LYMPHOCYTES PERCENT AUTO 14 % (21-46); MONOCYTES ABSOLUTE AUTO 0.56 K/mm3 (0.16-1.47); MONOCYTES PERCENT AUTO 12 % (4-13); Mean Corpuscular HGB 34.3 pg (26.0-34.0); Mean Corpuscular HGB Conc 34.3 g/dL (31.5-36.5); Mean Corpuscular Volume 100 fL (80-100); NEUTROPHILS ABSOLUTE AUTO 3.32 K/mm3 (1.96-9.15); NEUTROPHILS PERCENT AUTO 71 % (41-73); Platelet Count 136 K/mm3 (150-400); RDW Coefficient Variation 13.8 % (11.7-14.2); RDW Standard Deviation 50.4 fL (35.1-46.3); Red Blood Cell Count 5.31 M/mm3 (3.80-5.20); White Blood Cell Count 4.65 K/mm3 (4.00-11.30)
[2023-08-25 14:26] LABS: Albumin, Blood 3.4 g/dL (3.4-5.0); Albumin/Globulin Ratio 0.9 (0.8-1.8); Bilirubin, Total 1.4 mg/dL (0.1-1.0); Bun/Creatinine Ratio 20.1 (12.0-20.0); Calcium, Blood 10.4 mg/dL (8.5-10.1); Creatinine, Blood 0.95 mg/dL (0.40-1.00); Globulin, Blood 3.6 g/dL (2.2-4.0); Potassium, Blood 3.8 mmol/L (3.5-5.5)
== END 2023-08-25 18:07 | disposition home or self-care (01) ==
LOC: ER 13:08
PROVIDERS: Emergency Medicine
DX: B34.9 Viral infection, unspecified (principal); E03.9 Hypothyroidism, unspecified; C81.90 Hodgkin lymphoma, unspecified, unspecified site; I10 Essential (primary) hypertension; Z79.899 Other long term (current) drug therapy; Z88.6 Allergy status to analgesic agent; Z88.8 Allergy status to other drugs, medicaments and biological substances; Z91.030 Bee allergy status
CPT/HCPCS: 36415; 80053; 85025; 93005; 93010; 99284-25

== ENCOUNTER 2023-12-16 13:31 | Emergency (ER) | payer OTHER ==
[~2023-12-16] VITALS: Ht 175.3 cm; Wt 112.5 kg
[2023-12-16 13:44] VITALS: BP 160/98
[2023-12-16 14:15] LABS: BASOPHILS ABSOLUTE AUTO 0.04 K/mm3 (0.00-0.23); BASOPHILS PERCENT AUTO 1 % (0-2); EOSINOPHILS ABSOLUTE AUTO 0.05 K/mm3 (0.00-0.68); EOSINOPHILS PERCENT AUTO 1 % (0-6); Hematocrit 49.9 % (33.0-51.0); IMMATURE GRAN ABSOLUTE AUTO 0.01 K/mm3 (0.00-0.10); IMMATURE GRAN PERCENT AUTO 0 % (0-1); LYMPHOCYTES ABSOLUTE AUTO 1.11 K/mm3 (0.84-5.20); LYMPHOCYTES PERCENT AUTO 24 % (21-46); MONOCYTES ABSOLUTE AUTO 0.52 K/mm3 (0.16-1.47); MONOCYTES PERCENT AUTO 11 % (4-13); Mean Corpuscular HGB 35.1 pg (26.0-34.0); Mean Corpuscular HGB Conc 34.1 g/dL (31.5-36.5); Mean Corpuscular Volume 103 fL (80-100); Mean Platelet Volume 10.6 fL (9.1-12.4); NEUTROPHILS ABSOLUTE AUTO 2.93 K/mm3 (1.96-9.15); NEUTROPHILS PERCENT AUTO 63 % (41-73); Platelet Count 161 K/mm3 (150-400); RDW Coefficient Variation 13.9 % (11.7-14.2); RDW Standard Deviation 53.2 fL (35.1-46.3); Red Blood Cell Count 4.84 M/mm3 (3.80-5.20); White Blood Cell Count 4.66 K/mm3 (4.00-11.30)
[2023-12-16 14:31] LABS: Albumin, Blood 3.4 g/dL (3.4-5.0); Albumin/Globulin Ratio 0.9 (0.8-1.8); Bun/Creatinine Ratio 16.9 (12.0-20.0); Calcium, Blood 10.2 mg/dL (8.5-10.1); Creatinine, Blood 1.18 mg/dL (0.40-1.00); Globulin, Blood 3.6 g/dL (2.2-4.0); Potassium, Blood 3.9 mmol/L (3.5-5.5)
== END 2023-12-16 17:05 | disposition left against medical advice (07) ==
LOC: ER 13:31
PROVIDERS: Student in an Organized Health Care Education/Training Program
DX: R41.0 Disorientation, unspecified (principal); Z53.29 Procedure and treatment not carried out because of patient's decision for other reasons
CPT/HCPCS: 80053; 82140; 85025; 93005; 93010; 99282-25

== ENCOUNTER → 2025-04-12 | Outpatient (CLI) | payer OTHER | LOC: LAB SHORT 11:50 → LAB 11:50 | DX: N39.0 Urinary tract infection, site not specified (principal); R31.9 Hematuria, unspecified | CPT/HCPCS: 87077; 87086; 87186 ==